=== PATIENT | female | born 1975 | race Caucasian/White ===

== ENCOUNTER 2016-02-18 00:34 | Emergency (ER) | payer OTHER ==
[~2016-02-18] VITALS: Ht 157.5 cm; Wt 66.0 kg
[~2016-02-18 00:34] MED LIST: ACET500C16 PO; BUPR2TAB PO; CARV3.122 PO; FAMO1TAB PO; FUR20 PO; LISI2.5T PO; POTA10TA12 PO; PREN-20 PO
[2016-02-18 00:37] VITALS: BP 111/78; PULSE 88; RESP 16; O2SAT 98
== END 2016-02-18 01:05 | disposition left against medical advice (07) ==
LOC: SED 00:34
DX: Z53.21 Procedure and treatment not carried out due to patient leaving prior to being seen by health care provider (principal)

== ENCOUNTER 2016-06-26 16:40 | Inpatient (IN) | payer OTHER, MEDICAID ==
[2016-06-26] VITALS (8 sets, daily range): BP systolic 80–129; BP diastolic 54–82; PULSE 98–109; RESP 18–24; O2SAT 96–99
[~2016-06-26] VITALS: Ht 157.5 cm; Wt 58.6 kg
--- NOTE | 2016-06-26 16:43 | ED.REPORT ---
HPI-Chest Pain Under 40 Date of Service June 26, 2016 ED Provider: Dr. Alonso Rice MD A 39 year old female with a history of CHF, pulmonary hypertension and a prior history of IV drug abuse presents to the ED via EMS with chest pain that began this morning. Patient was seen at Urgent Care this afternoon and was sent to the ED for further evaluation. Associated symptoms include SOB, new onset fever of 101 F, mild lower extremity swelling and right-sided back pain that began 2 days ago. She denies chills or abdominal pain. She denies history of [place]. Patient has not taken her Adcirca, torsemide or lateris for the past few days and claims that she was unable to fill the prescription. Nursing Notes Stated Complaint: CHEST PAIN Chief Complaint: Chest Pain Nursing Notes Reviewed: Yes Allergies: Coded Allergies: Penicillins (Verified Allergy, Unknown, A CHILD, 06/26/16) Scheduled Acetaminophen (Pain Reliever) 500 Mg Capsule 500 MG PO PRN Ambrisentan (Letairis) 10 Mg Tablet 10 MG PO DAILY Buprenorphine-Expunged Drug, Do Not Renew! (Buprenorphine-Expunged Drug, Do Not Renew!) 2 Mg Tab.subl 4 MG PO DAILY Carvedilol (Carvedilol) 3.125 Mg Tablet 3.125 MG PO BID Famotidine/Calcium Carb/Mag (Tums Dual Action Tablet Chew) 1 Each Tab.chew 1 EACH PO PRN Furosemide (Furosemide) 20 Mg Tab 20 MG PO DAILY Lisinopril (Lisinopril) 2.5 Mg Tablet 5 MG PO DAILY Pnv With Ca,No.71/Iron/Fa-Expunged Drug, Do N (-Expunged Drug, Do Not Renew!) 1 Each Tablet 1 EACH PO DAILY Potassium Chloride ER (Potassium Chloride ER) 10 Meq Tablet 10 MG PO DAILY Tadalafil (Adcirca) 20 Mg Tablet 40 MG PO DAILY Torsemide (Torsemide) 20 Mg Tablet 20 MG PO DAILY General Time Seen by MD: 16:43 Chief Complaint Chest pain Hx Obtained From: Patient Arrived By: Ambulance Sudden in Onset?: No Onset Occurred: Just prior to arrival Symptom Duration: Since onset Location: : Chest left: Chest right Quality: Painful Radiation: : Does not radiate Migration/Movement: Reports: None Severity: Current: Moderate Severity: Maximum: Moderate Associated with: Reports: Fever (101F), Shortness of breath Pertinent Negative: Pt denies other symptoms Recent Healthcare: No recent doctor visit, No recent hospitalization Risk Factors )( CAD Risk Stratification Hypertension Risk factors reviewed TAD Risk Stratification Hypertension Risk factors reviewed )( PE Risk Stratification Risk factors reviewed Past Medical History Past Medical History Notes: social work specialist: Dr. Anupam Winters Past Medical History IV drug abuse Pulmonary hypertension Reports: Congestive heart failure Past Surgical History None reported. Smoking History Never Smoker Social History Drug Use: In recovery, IV drugs Other Social History: Good social support, Local resident Ambulatory Status Independent Review of Systems Constitutional: Reports: Fever (101 F), Denies: Chills Respiratory: Reports: Shortness of breath Cardiovascular: Reports: Chest pain GI: Denies: Abdominal pain Musculoskeletal: Reports: Back pain Complete sys rev & neg: except as marked. Physical Exam Initial Vital Signs Vital Signs (First) Date Time Temp Pulse Resp B/P Pulse Ox O2 Delivery O2 Flow Rate FiO2 06/26/16 16:43 37.3 104 24 95/56 96 Room Air Initial VS: Reviewed Head / Eyes: Atraumatic, Normocephalic, PERRL Skin: Warm, Dry, No cyanosis Neurologic: Alert, Oriented, Nonfocal General/Constitutional: Awake, Alert Distress / Hydration: Positive: Distress moderate Respiratory / Chest: Atraumatic, Breath sounds NL, Breath sounds = bilat, No respiratory distress Cardiovascular: Regular rhythm, Heart sounds NL Heart Rate / Rhythm: Positive: Tachycardia Lower Ext Edema: Positive: Bilateral 1+ Neck: Atraumatic, Supple Neck Vascular: Positive: JVD moderate Abdomen: Atraumatic, Soft, Non-tender Lower Extremity / Pelvis / MS: Atraumatic, Neurologic intact, Vascular intact Upper Extremity / MS: Atraumatic, Neurologic intact, Vascular intact Interpretation & Diagnostics Lab Results Interpretation Result Diagram: 06/26/16 1650 06/26/16 1650 Test 06/26/16 16:50 06/26/16 18:11 White Blood Count 9.1th/mm3 (3.8-10.1) Red Blood Count 4.88mil/mm3 (3.90-5.20) Hemoglobin 14.3g/dL (12.0-15.6) Hematocrit 41.7% (35.0-46.0) Mean Corpuscular Volume 85.5fL (81-100) Mean Corpuscular Hemoglobin 29.3pg (27.0-35.0) Mean Corpuscular Hemoglobin Concent 34.3% (32.0-37.0) Red Cell Distribution Width 14.9% (12.3-15.4) Platelet Count 423bil/L (150-400) Neutrophils (%) (Auto) 54.5% (40-74) Lymphocytes (%) (Auto) 33.2% (14-46) Monocytes (%) (Auto) 10.7% (4-12) Eosinophils (%) (Auto) 1.3% (0-5) Basophils (%) (Auto) 0.2% (0-3) Erythrocyte Sedimentation Rate 17mm/hr (0-32) Sodium Level 135mEq/L (134-144) Potassium Level 3.5mEq/L (3.5-5.2) Chloride Level 98mEq/L (97-108) Carbon Dioxide Level 21mmol/L (18-29) Blood Urea Nitrogen 14mg/dL (6-20) Creatinine 0.83mg/dL (0.57-1.00) Estimat Glomerular Filtration Rate 110mL/min (>59) Glucose Level 95mg/dL (60-99) Calcium Level 8.5mg/dL (8.5-10.1) Magnesium Level 1.7mg/dL (1.6-2.6) Total Bilirubin 0.4mg/dL (0.0-1.2) Aspartate Amino Transf (AST/SGOT) 136U/L (0-50) Alanine Aminotransferase (ALT/SGPT) 114U/L (0-32) Alkaline Phosphatase 95U/L (25-150) Troponin T < 0.010ug/L (0.0-0.011) C-Reactive Protein 0.1mg/dL (0.0-0.5) Pro-B-Type Natriuretic Peptide 1523pg/mL (0-130) Total Protein 8.5g/dL (6.4-8.4) Albumin 3.5g/dL (3.4-5.0) Alcohols < 10mg/dL (0-10) Hold Urine Received (Received) Point of Care Testing: Preg test neg - urine ECG Interpretation ECG Interpretation: Sinus tachycardia Rate [address] changes Right ventricular hypertrophy Time: 16:59 Interpreted by: ED physician Normal ECG Interpretation: No change from prior ECGs Drug Screen / Level Interp Urine pos amphetamines (methamohetamine) X-Ray Chest Interpretation Chest Xray Interpretation: IMPRESSION: No acute process. Dictated by: Michelle Webster M.D. on 06/26/2016 at 17:11 Interpretation / Wet Read by: Interpret - Radiologist Re-Eval/Medical Decision Med Decision/Clinical Course Patient presents with right-sided chest pain for greater than 6 hours. Exam findings do not reveal severe fluid overload, her vital signs are stable. She has low-grade tachycardia which may be due to med noncompliance and suspected methamphetamine abuse based on urinalysis. Troponin is negative, probe BNP is mildly elevated however she has reassuring vital signs. She was given IV Lasix and her symptoms have greatly improved. I suspect this is likely a mild exacerbation of pulmonary hypertension due to noncompliance. I do not suspect that she is decompensated to the point where she requires hospitalization at this time. It seems reasonable to have her resume her regularly scheduled medicines, as she has very clearly said she has been noncompliant over the weekend, refrain from alcohol and drug use, and follow-up with her primary care doctor and space physicist. Of note, she did have a fever documented at urgent care at 38.3. No identifiable cause for fever is found, her white blood cell count is normal, normal sedimentation rate, normal C-reactive protein, normal chest x-ray, no evidence of UTI on urinalysis. Endocarditis seems unlikely. Strict return and follow-up precautions are given. Re-Evaluation/Progress #1: Time of Eval: 17:01 Re-Evaluation/Progress Note: Pt is rechecked. Further history is obtained. Re-Evaluation/Progress #2: Time of Eval: 18:53 Patient Status: Condition improved Re-Evaluation/Progress Note: Symptoms have improved. She denies any recent IV drug use or meth use. All questions about the prescriptions are addressed. She understands and agrees with the intended treatment plan. Consultation : Referral / Consult Name: Mahendra Thornton MD Consulted With: Associate Professor Of Medicine Call Returned at: 17:26 Learning Support Resource Room Teacher: Agrees with eval, Agrees with plan Note: Recommends give pt 10mg of torsemide but hold off administering 10 mg of lateris or 20mg of adircica. Counseled Regarding: Diagnosis, Lab results, Need for follow-up, When/why to return to ED Discharge & Departure Primary Impression: Chest pain Chest pain type: unspecified Qualified Code: R07.9 - Chest pain, unspecified Disposition: Home Discharge Condition All VS Reviewed: Yes Condition: Stable Patient Instructions: Chest Pain (ED) Additional Instructions: Thank you for trusting us with your care this afternoon. Your emergency department evaluation today including lab work, EKG and chest X- ray are reassuring that there is no dangerous cause for concern at this time and your labs did not reveal any signs of infection. Please continue to take your medication as directed. Your medicines have been refilled for 2 weeks. Call your space physicist tomorrow to schedule a close follow up appointment. Avoid alcohol and drug use. Please return to the emergency department if you begin to experience any new or worsening symptoms. Referrals: NOPCP (PCP) [facility] Scribe Attestation Portions of this note were transcribed by Alka Haro. I, Dr. Rice personally performed the history, physical exam and medical decision-making; I reviewed and confirmed the accuracy of the information in the transcribed note. Signed by: French Christina, 06/26/16 1901. Alonso Rice DO June 26, 2016 16:43 ALKA HARO June 26, 2016 16:51
[2016-06-26 17:00] LABS: BASOPHILS % (AUTO) 0.2 % (0-3); EOSINOPHILS % (AUTO) 1.3 % (0-5); MONOCYTES % (AUTO) 10.7 % (4-12); Mean Corpuscular Hemoglobin 29.3 pg (27.0-35.0); Mean Corpuscular Volume 85.5 fL (81-100); NEUTROPHILS % (AUTO) 54.5 % (40-74); Platelet Count 423 bil/L (150-400)
--- NOTE | 2016-06-26 17:13 | DRSVH ---
PROCEDURE: X-RAY CHEST ONE VIEW, PORTABLE ([id number]) INDICATIONS: CHEST PAIN TECHNIQUE: One view of the chest was acquired. COMPARISON: [facility], CR, XR CHEST 1VW (PORTABLE), 10/20/2015, 22:21. [facility], CR, XR CHEST 1VW (PORTABLE), 10/20/2015, 19:00. FINDINGS: Surgical changes and devices: None. Lungs and pleura: No pleural effusions or pneumothorax. Lungs are clear. Mediastinum: Mediastinal contours appear normal. Heart size is enlarged. Bones and chest wall: No suspicious bony lesions. Overlying soft tissues appear unremarkable. IMPRESSION: No acute process. Dictated by: Michelle Webster M.D. on 06/26/2016 at 17:11 Approved by: Michelle Webster M.D. on 06/26/2016 at 17:11
[2016-06-26 17:25] LABS: TROPONIN T < 0.010 ug/L (0.0-0.011)
[2016-06-26] MEDS ORDERED: Furosemide 10 mg/mL 2 mL Inj IVPUSH ONE (17:25)
[2016-06-26 17:35] LABS: Magnesium 1.7 mg/dL (1.6-2.6)
[2016-06-26] MEDS ORDERED: TADA20TA31 PO (18:59)
[2016-06-26] MEDS ORDERED: TORS20TA3 PO (18:59)
[2016-06-26] MEDS ORDERED: AMBR10TA3 PO (18:59)
--- NOTE | 2016-06-26 21:59 | DRSVH ---
PROCEDURE: CT ANG CHEST/ABD W/WO CONTRAST ([id number]) INDICATIONS: CHEST PAIN TECHNIQUE: Precontrast 5 mm thick sections acquired from the lung apices to the iliac crests. After the adminis tration of intravenous contrast, 3 mm thick sections again acquired from the lung apices to the iliac crests. 3-dimensional maximum intensity projection (MIP) oblique sagittal and coronal reformats wer e then acquired, and/or 3-dimensional volume rendering reformats. For radiation dose reduction, the following was used: automated exposure control. COMPARISON: [facility], CT, CT ANGIO CHEST PE, 10/20/2015, 23:32. FINDINGS: Image quality: Excellent. AORTA: No evidence of dissection, stenosis, nor aneurysm. CHEST: Lungs and pleura: No acute airspace opacities. No pleural effusions or pneumothorax. Central and p eripheral airways are patent and normal in caliber. Mediastinum: Heart size is enlarged. There is a small pericardial effusion. No mediastinal or hilar adenopathy by size criteria. Central pulmonary arteries are normal in size. Esophagus is normal in caliber. A small hiatal hernia is present. Bones and chest wall: No axillary adenopathy by size criteria. Thyroid gland is within normal limit s. No suspicious bony lesions. No vertebral body compression fractures. ABDOMEN: Vasculature: Celiac trunk and mesenteric arteries are patent. Renal arteries are also patent. Solid organs: Liver and spleen are normal in size. Gallbladder is within normal limits. Biliary sy stem is non dilated. Pancreas enhances normally. No adrenal nodules. Both kidneys are normal in si ze and enhancement, without hydronephrosis. Peritoneum and bowel: No free fluid or air. Bowel loops are normal in caliber and wall thickness. Nodes and vessels: No retroperitoneal or mesenteric adenopathy by size criteria. Inferior vena cava is normal in morphology. Bones: No suspicious bony lesions. No vertebral body compression fractures. Miscellaneous: No ventral hernias. IMPRESSION: 1. No acute process. 2. Small pericardial effusion. 3. Cardiomegaly. 4. No evidence of aortic dissection, nor aneurysm. Dictated by: Michelle Webster M.D. on 06/26/2016 at 21:55 Approved by: Michelle Webster M.D. on 06/26/2016 at 21:58
[2016-06-26] MEDS ORDERED: Alum-Mag Hydrox-Simeth 30 mL Suspension PO PRN (22:35)
--- NOTE | 2016-06-26 23:28 | PCM.HPMED ---
Subjective Date of Service June 26, 2016 Primary Provider: Admitting Physician: Primary Care Physician: April Attending Physician: Admit Status: From the Emergency Department, Full Admit, [facility] Telemetry Chief Complaint: Chest pain History of Present Illness: No [place] is a 39 year old female with Core Pulmonale with Right sided heart failure, pulmonary hypertension and a prior history of IV drug abuse presents to [facility] emergency department via EMS with chest pain that began this morning. Chest pain is located mid sternal, pressure, 4/10 intensity and non radiating. Associated symptoms include Shortness of breathe, generalized weakness, some lightheadness, new onset fever of 101 F. She denies chills or abdominal pain. No coughing and no fever. She denies any illicit drug use. Patient was seen at Urgent Care this afternoon and was sent to the ED for further evaluation. Patient has not taken her Tadalafil, torsemide and Ambrisentan for the past few days and claims that she was unable to fill the prescription. Patient has a history of prior ICU admission October 2015. Discharge diagnoses included pulmonary hypertension and pericardial effusion. She had echo that demonstrated severe pulmonary hypertension mild right ventricular enlargement and moderate systolic dysfunction. She has seen Dr Winters (Pulmonology) at the [facility] and it was identified patient was non compliant with her medications and was suppose to follow up at Pulmonology Hypertension clinic. Case discussed with Dr Betts, failed road test with persistent dyspnea on exertion and was hypotension on arrival. He spoke to Dr Dial from Cardiology who recommended gentle diuresis tonight and repeat an Echo tomorrow. Review of Systems: Pertinent positives as noted in HPI. All other systems were reviewed and are negative Allergies Coded Allergies: Penicillins (Verified Allergy, Unknown, A CHILD, 06/26/16) Home Medications From [facility], not yet confirmed No E[place] [id number] 1975 06/26/2016 03:45 PM 1/ Adcirca 20 mg tablet take 2 tablet by oral route every day clindamycin 300 mg capsule take 1 capsule by oral route every 6 hours Letairis 10 mg tablet take 1 tablet by oral route every day torsemide 10 mg tablet take 2 Tablet by oral route every day PMH Hepatitic C Heroine and Methamphetamine Abuse Connective tissue disease possible Systemic Lupus (2013): stopped taking Hydrochloroquine due to head ache Pulmonary hypertension, [facility] evaluation and was treated with Tadalafil, Ambrisentan and Torsemide daily Right heart failure due to pulmonary hypertension Surgical History None reported Family History No heart or lung disease in the family Social History Hx Alcohol Use: No Hx Substance Use: Yes (DENIES) Hx Tobacco Use: No Smoking Status: Never Smoker Living Arrangement: with Family Exam Vital Signs Vital Sign - Last Date Time Temp Pulse Resp B/P Pulse Ox O2 Delivery O2 Flow Rate FiO2 06/26/16 21:05 37.3 98 20 90/58 99 Room Air Exam General: Alert, Oriented X3, Cooperative, No acute Distress Eyes: PERRLA, Scleral Anicteric Mouth: Mouth Normal, Mucous Membranes Moist/[place] Neck: Supple, no Thyromegaly, trachea central. Chest & Lungs: Clear to auscultation & percussion, No adventitious breath sounds, no crackles, no wheeze Cardiovascular: Normal S1, Normal S2, No Murmurs/Rubs/Gallops, Regular Rate/ Rhythm, S3 noted (No JVD, no peripheral edema) Pulses: Radial (present and equal), Dorsalis Pedi (present and equal) Abdomen: Soft, Non-tender, Non-distended, Normoactive bowel tones. Musculoskeletal: Unremarkable. Normal range of motion, no swollen or erythematous joints Extremities: No edema, no cyanosis, no clubbing. Skin: No rashes. Warm and dry, no erythematous areas Neurological: Grossly neurologically intact, Normal Speech, Sensation Intact Lymphatic: Lymph nodes Cervical and Axillary not palpable Lab and Diagnostics Labs Laboratory Tests Test 06/26/16 16:50 06/26/16 18:11 White Blood Count 9.1th/mm3 (3.8-10.1) Red Blood Count 4.88mil/mm3 (3.90-5.20) Hemoglobin 14.3g/dL (12.0-15.6) Hematocrit 41.7% (35.0-46.0) Mean Corpuscular Volume 85.5fL (81-100) Mean Corpuscular Hemoglobin 29.3pg (27.0-35.0) Mean Corpuscular Hemoglobin Concent 34.3% (32.0-37.0) Red Cell Distribution Width 14.9% (12.3-15.4) Platelet Count 423bil/L (150-400) Neutrophils (%) (Auto) 54.5% (40-74) Lymphocytes (%) (Auto) 33.2% (14-46) Monocytes (%) (Auto) 10.7% (4-12) Eosinophils (%) (Auto) 1.3% (0-5) Basophils (%) (Auto) 0.2% (0-3) Erythrocyte Sedimentation Rate 17mm/hr (0-32) Sodium Level 135mEq/L (134-144) Potassium Level 3.5mEq/L (3.5-5.2) Chloride Level 98mEq/L (97-108) Carbon Dioxide Level 21mmol/L (18-29) Blood Urea Nitrogen 14mg/dL (6-20) Creatinine 0.83mg/dL (0.57-1.00) Estimat Glomerular Filtration Rate 110mL/min (>59) Glucose Level 95mg/dL (60-99) Calcium Level 8.5mg/dL (8.5-10.1) Magnesium Level 1.7mg/dL (1.6-2.6) Total Bilirubin 0.4mg/dL (0.0-1.2) Aspartate Amino Transf (AST/SGOT) 136U/L (0-50) Alanine Aminotransferase (ALT/SGPT) 114U/L (0-32) Alkaline Phosphatase 95U/L (25-150) Troponin T < 0.010ug/L (0.0-0.011) C-Reactive Protein 0.1mg/dL (0.0-0.5) Pro-B-Type Natriuretic Peptide 1523pg/mL (0-130) Total Protein 8.5g/dL (6.4-8.4) Albumin 3.5g/dL (3.4-5.0) Alcohols < 10mg/dL (0-10) Hold Urine Received (Received) Microbiology 06/26/16 Blood Culture, Received Pending Result Diagram: 06/26/16 1650 06/26/16 1650 X-Rays, CTs and MRIs X-RAY CHEST ONE VIEW, PORTABLE 06/26 IMPRESSION: No acute process. Dictated by: Michelle Webster M.D. on 06/26/2016 at 17:11 Approved by: Michelle Webster M.D. on 06/26/2016 at 17:11 -- CT ANG CHEST/ABD W/WO CONTRAST 06/26 IMPRESSION: 1. No acute process. 2. Small pericardial effusion. 3. Cardiomegaly. 4. No evidence of aortic dissection, nor aneurysm. Dictated by: Michelle Webster M.D. on 06/26/2016 at 21:55 Approved by: Michelle Webster M.D. on 06/26/2016 at 21:58 Assessment & Plan No [place] is a 39 year old female with Core Pulmonale with Right sided heart failure, pulmonary hypertension and a prior history of IV drug abuse presents to [facility] emergency department via EMS with chest pain 1. Acute on Chronic Right sided Heart Failure and Pulmonary Hypertension. Present on admission Likely due to non compliance with medications. Consider cardiac ischemia as as cause. No Pulmonary embolism or Aortic dissection on CT scan - diuretics continued Lasix 40 mg IV bid - monitor weight and fluid status daily - complete echo tomorrow - will resume Tadalafil and Ambrisentan to treat Pulmonary hypertension - Cardiology consulted - consider Pulmonology consultation, Dr Winters is familiar with the patient 2 Hypotension. Present on admission Patient reporting she has chronically low BP. Consider infection but no source is obvious at this time - monitor closely - No fluids given due to acute congestive heart failure - consider workup for Adrenal insufficiency 3 Elevated Transaminitis due to Shock liver. Present on admission Hypotension noted with history of Chronic Hepatitis C 4 Systemic Lupus Erythematosus Chronic and presumed active due to not current active immuno suppressive medications - will need to follow up locally with Dr Suarez or Rheumatology clinic at 5 History of Heroine/Methamphetamine Abuse - Urine drug screen - Acetaminophen as needed for mild pain/fever/headache - Bowel regimen as needed - Antiemetic as needed Patient admitted under inpatient status with expected length of stay > 2 midnights for severity of present symptoms, complexities of treatment plan and risk for adverse event . VTE Prophylaxis: Sub-Q Heparin (Unfractionated) Resuscitation Status: CPR: Attempt Resuscitation Koffi Gonzalez MD June 26, 2016 22:39
[2016-06-27] VITALS (12 sets, daily range): BP systolic 78–104; BP diastolic 54–70; PULSE 97–117; RESP 12–26; O2SAT 84–100
[2016-06-27] MEDS: Sodium Chloride LOK Flush 10 mL Syringe IVFLUSH SCH ×3 (00:08→17:12)
[2016-06-27] MEDS: Heparin 5,000 Unit/mL Inj SUBQ SCH ×3 (00:08→17:12)
--- NOTE | 2016-06-27 00:25 | NUR ---
Admission Note Pt admitted to [facility] from ER on stretcherDr. Gonzalez at bedside, pt appears drowsy (pt had Ativan IV at ER) with eyes closed, response to sternal rub or pain stimuli with "Ow",grimace, and spontaneously move extremities, but does not talk or answer any questions, therefore, unable to conduct admission questions at this time, will try later when pt wake up. BP 92/61 (baseline 80s,90s per MARINE STEWARD report), HR108, RR20, SPO2 95% on RA, T 37.2. No acute distress noted. Lung sounds clear, no crackles or wheezes noted. Tele: ST 107 per ekg monitor, S1 S2 strong,regular,no murmur. S3 present, MD aware, pt had Lasix at ER. Abdomen soft, non tender, BT active at all quadrants, trace edema at LEs. Call light within reach, bed alarm on for safety. Dr. Gonzalez said Ok to give Tylenol despite elevated liver enzyme if pt c/o pain.
--- NOTE | 2016-06-27 02:00 | NUR ---
Unable to compete and/or verify admission assessment/Home meds/Advance Directive/Allergy Pt appears sedated (pt had Ativan IV at ER) with eyes closed, response to sternal rub or pain stimuli with "Ow",grimace, and spontaneously move extremities, but does not talk or answer any questions. Unable to compete and/or verify admission assessment/Home meds/Advance Directive/Allergy, limited answers based on hx recall and H&P. Unable to verified allergy with [employer] Beth Pond who is out of work. Will continue working on it when pt wake up.
--- NOTE | 2016-06-27 04:35 | NUR ---
Hypertension/Mental Status Baseline BP 80S-90S per [employer] report. Dr. Gonzalez keep informed at 0420 about current BP88/58 HR 103, cold hands. No order given. Pt less drowsy, wake up by voice, but still unable to communicate. Addendum: 06/27/16 at 9624 by JETHRO AVALOS RN Title should be "Hypotension/Mental Status", rather than "Hypertension/Mental Status"
[2016-06-27 05:41] LABS: APPEARANCE,URINE CLEAR (CLEAR,HAZY); COLOR,URINE STRAW (YELLOW); OCCULT BLOOD,URINE NEGATIVE (NEGATIVE); UROBILINOGEN,URINE NORMAL (NORMAL)
[2016-06-27] MEDS: Furosemide 10 mg/mL 4 mL Inj IVPUSH SCH ×2 (08:30→20:24)
[2016-06-27 08:57] LABS: Creatine Kinase 179 U/L (21-215); TROPONIN T < 0.010 ug/L (0.0-0.011)
--- NOTE | 2016-06-27 10:46 | PCM.CHPCAR ---
Consult Subjective Date of service June 27, 2016 Date of admit June 26, 2016 at 23:12 Provider Requesting Consult Requesting Provider: Koffi Gonzalez MD Primary Care Physician Primary Care Physician: April Chief Complaint Chest pain and pressure History of Present Illness 39yoF hx pulmonary 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 she also reported shortness of breath, generalized weakness, lightheadedness, and fever. She denied chills or abdominal pain. No coughing and no fever. She denies any illicit drug use over the past 6 months, though a urine tox screen was positive for amphetamines on admission. She is currently on tadalafil and ambrisentan, as well as torsemide and hydroxychloroquine. She has been noncompliant with her medications and takes the tadalafil and ambrisentan only 50% of the time and had stopped taking hydroxychloroquine for months before starting it again recently on Dr. Winters's advice. She had a recent ICU admission in October 2015 included pulmonary hypertension and pericardial effusion. Echocardiogram on 11/01/15 showed normal LVEF, moderate RV dilation with mildly reduced function, pulmonary HTN with PA pressures of 47mmHg, flattened interventricular septum, and a small pericardial effusion. Today, further history is limited as the patient is somnolent and does not stay awake longer to adequately answer questions. She did complain of chest pain and shortness of breath today when lying on her left side for an echocardiogram. PROBLEM LIST #Pulmonary hypertension with right heart failure #Chest pain #Shortness of breath #Methamphetamine abuse #Mixed connective tissue disease/systemic lupus #Hepatitis C Review of Systems Review of Systems Review of systems limited due to patient mental status. PMH Past Medical History Hepatitic C Heroin and Methamphetamine Abuse Connective tissue disease possible Systemic Lupus (2013): stopped taking Hydrochloroquine due to head ache Pulmonary hypertension, [facility] evaluation and was treated with Tadalafil, Ambrisentan and Torsemide daily Right heart failure due to pulmonary hypertension No Active Prescriptions or Reported Meds Current Inpatient Medications Current Medications Morphine Sulfate 4 mg Q15MIN PRN IVPUSH; Start 06/26/16 at 20:20; Stop at 23:42; Status DC Sodium Chloride 10 ml JEFF IVFLUSH Last administered on 06/27/16 00:08; Admin Dose 10 ML; Start 06/27/16 at 00:30 Furosemide 40 mg BID IVPUSH; Start 06/27/16 at 08:30 Al Hydrox/Mg Hydrox/Simethicone 30 ml Q6H PRN PO; Start 06/26/16 at 22:35 Ondansetron HCl 4 mg Q4H PRN IVPUSH; Start 06/26/16 at 22:35 Senna 2 tablet BID PRN PO; Start 06/26/16 at 22:35 Polyethylene Glycol 17 gm DAILY PRN PO; Start 06/26/16 at 22:35 Acetaminophen 650 mg Q6H PRN PO; Start 06/26/16 at 22:35 Nitroglycerin 0.4 mg Q5MIN PRN SL; Start 06/26/16 at 22:35 Heparin Sodium (Porcine) 5,000 unit Q8 SUBQ Last administered on 06/27/16 00:08 ; Admin Dose 5,000 UNIT; Start 06/27/16 at 00:30 Allergies: Coded Allergies: Penicillins (Verified Allergy, Unknown, A CHILD, 06/26/16) Social History Hx Alcohol Use: NoHx Substance Use: Yes (Heroine and Methamphetamine)Hx Tobacco Use: No Smoking Status: Never Smoker Living Arrangement: with Family Exam Vital Signs Vital Sign - Last Date Time Temp Pulse Resp B/P Pulse Ox O2 Delivery O2 Flow Rate FiO2 06/27/16 10:02 37.6 113 26 93/65 06/27/16 05:24 100 Room Air Intake and Output 06/26/16 06/26/16 06/27/16 Cumulative From/Thru 15:00 23:00 07:00 06/26/16 16:43 - 06/27/16 06:49 Intake Total 0 ml 0 ml Output Total 650 ml 450 ml 1100 ml Balance -650 ml -450 ml -1100 ml Intake Oral 0 ml 0 ml Output Urine Total 650 ml 450 ml 1100 ml Objective General appearance: Appears somnolent and difficult to arouse. HEET: Normocephalic, atraumatic, no scleral icterus, mucous membranes moist Neck: Supple, no JVD, no carotid bruit Cardiovascular: RRR, normal S1 and normal S2, no murmurs/ rubs/gallops, PMI nondisplaced, no peripheral edema Respiratory: Good aeration, CTAB Abdomen: Soft, nontender, nondistended, + bowel sounds Neuro: Somnolent, difficult to arouse. Speech normal. Psych: Appropriate affect Skin: No rashes on face, neck, and lower extremities Lab and Diagnostics Result Diagram: 06/26/16 1650 06/27/16 0735 Assessment & Plan Assessment 39yoF hx pulmonary 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 #Right heart failure secondary to severe pulmonary arterial hypertension: Pulm HTN secondary to mixed connective tissue disease and meth use. RV failure has worsened due to ongoing meth use and medication non-compliance. CXR was normal. CT chest/abdomen showed cardiomegaly and a small pericardial effusion. We reviewed her echocardiogram today, which showed normal LV function, but severe right ventricular dysfunction with severely increased pulmonary arterial pressures. A pericardial effusion was noted, worse than her previous echo, which is a poor prognostic indicator in cor pulmonale. Her IVC size was normal, with no indication of any significant volume overload. Her physical exam was not suspicious for volume overload as well. Given her presentation and recent echo, her prognosis is likely poor. Recommend discussion with palliative care and symptomatic management by restarting her home tadalafil and ambrisentan, as well as continuing current Lasix dose. - Recommend consulting Palliative Care - Restart home tadalafil and ambrisentan - Continue Lasix 40 mg IV BID. Dose may need to be decreased if patient gets RALPH due to overdiuresis. #Shortness of breath: Likely secondary to right heart failure. Recommend treatment of pulmonary hypertension. #Methamphetamine abuse: Likely exacerbated her right heart failure with recent use. She is likely somnolent from amphetamine withdrawal. #Hepatitis C: Recommend regular monitoring of LFTs while on ambrisentan. Cardiology will sign off at this time. VTE Prophylaxis: Sub-Q Heparin (Unfractionated) VTE Mechanical Devices: Intermittant Pneumatic CD Resuscitation Status: CPR: Attempt Resuscitation Attending Statement I saw, examined, and evaluated the patient with Dr. Dorian Pierson on 2016 and agree with the note as above along with my edits. Dorian Pierson 23, 2017 10:46 Richard Garcia MD June 27, 2016 11:36
[2016-06-27] MEDS: Hydroxychloroqine 200 mg Tablet PO SCH ×2 (11:29→12:51)
--- NOTE | 2016-06-27 11:32 | DRSVH ---
[facility] [address] [place] [address] Echocardiogram Report Name: PRASANNA SLOAN CStudy Date: 06/27/2016 Height: 62 in Hospital Exam Location: [facility] Weight: 124 lb Gender: Female BSA: 1.6 m2 : 1975 Age: 40 yrs BP: 78/54 mmHg Reason For Study: SOB Ordering Physician: Performed By: [facility] Interpretation Summary 1) Small left ventricular cavity with normal thickness and normal systolic function (EF 60-65%). 2) Severely dilated right ventricle with moderately to severely reduced function. 3) Flattened interventricular septum, suggestive of right ventricular pressure overload. 4) Moderate tricuspid regurgitation present. 5) Severe pulmonary hypertension present, estimated systolic pulmonary pressures of 90mmHG. 6) Moderate pericardial effusion present, with no echo evidence of tamponade physiology. 7) Compared to the Echo done 11/04/2015, cor pulmonale and pulmonary hypertension have both worsened and worsening of pericardial effusion is a also a poor prognostic sign. Procedure: A two-dimensional transthoracic echocardiogram with color flow and Doppler was performed. The study quality was technically adequate. Comparison is made with the echocardiogram of 11/04/2015. The patient was in sinus tachycardia with heart rates between 97-113 bpm during the exam. Left Ventricle: The left ventricular cavity is small. Left ventricular wall thickness is borderline increased. The ejection fraction is estimated to be 60-65%. Flattened septum is consistent with RV pressure/volume overload. Assessment of diastolic parameters indicates a relaxation abnormality of the left ventricle, consistent with normal filling pressures. Right Ventricle: The right ventricle is severely dilated. Right ventricular size has increased since the prior echo exam. There is no mass or thrombus in the right ventricle. Right ventricular systolic function is moderate to severely reduced. Atria: The left atrial size is normal. The right atrium is severely dilated. Mitral Valve: There is a flat closure plane of the the mitral valve leaflets. There is no mitral regurgitation noted. Aortic Valve: The aortic valve is normal in structure and function. There is no aortic valve stenosis. No aortic regurgitation is present. Tricuspid Valve: The tricuspid valve leaflets are thin and pliable. The tricuspid annulus is dilated. There is moderate tricuspid regurgitation. The right ventricular systolic pressure is estimated at 90 mmHg assuming a right atrial pressure of 8 mm Hg. There is severe pulmonary hypertension. Compared to the prior echo exam, there has been an increase in the severity of pulmonary hypertension. Pulmonic Valve: The pulmonic valve leaflets are thin and pliable; valve motion is normal. There is mild pulmonic regurgitation. Great Vessels: The aortic root is normal size. The ascending aorta could not be visualized. The IVC is of normal diameter and collapses less than 50% with a sniff. This suggests a right atrial pressure of 8 mm Hg. Pericardium/ Pleura There are no echocardiographic or Doppler indications for cardiac tamponade. There is a moderate pericardial effusion noted. MMode/2D Measurements & Calculations LVIDd: 3.2 cm RA long axis LVOT diam LVIDs: 1.7 cm LA A2 area: 15.0 cm FS: 46.0 % LA A4 area: 9.9 cm RA area AoV Opening EPSS: 0.10 cm LA length (vol): 5.6 cm IVSd: 1.0 cm LA vol: 22.6 ml : 25.4 cm Ao root diam LVPWd: 1.2 cm LA vol index RA vol: 96.0 ml RA Aortic Jxn : 61.5 mm2 : 2.2 cm IVC diam: 1.8 cm LV downing. diameter/BSA LV sys. diameter/BSA RVD1 (basal) RVD2 (mid) (cm/m^2): 2.0 (cm/m^2): 1.1 : 4.0 cm TAPSE: 1.4 cm Doppler Measurements & Calculations Ao V2 max: 87.6 cm/sec MV E max elijah MV E/A: 0.62 TR max elijah Ao max P.1 mmHg : 49.4 cm/sec Med Peak E' Elijah : 453.9 cm/sec Ao mean P.9 mmHg MV A max elijah TR max PG LVOT Max Elijah : 79.8 cm/sec E/E' med: 8.9 : 82.4 mmHg : 82.2 cm/sec Lat Peak E' Elijah PA V2 max : 66.4 cm/sec YASMEEN(I,D): 2.4 cm E/E' lat: 9.0 PA mean PG sev ratio: 0.89 E/e' average: 8.9 : 0.96 mmHg PA Accel Time : 0.07 sec MV dec time: 0.18 sec Ao V2 mean LV V1 max PG PA V2 mean : 65.5 cm/sec : 46.6 cm/sec Ao V2 VTI LV V1 VTI: 10.2 cm YASMEEN(V,D): 2.6 cm2 YASMEEN indexed to BSA (cm^2/m^2): 1.6 Reading Physician:11:32 AM
[2016-06-27] MEDS: Ondansetron 2 mg/mL 2 mL Inj IVPUSH PRN (13:00)
[2016-06-27 15:39] LABS: TROPONIN T 0.027 ug/L (0.0-0.011)
[2016-06-27 15:50] LABS: Creatine Kinase 71 U/L (21-215)
--- NOTE | 2016-06-27 16:02 | NUR ---
SW - Initial Assessment Attempted SW met with pt at bedside to attempt initial assessment. Pt could not be roused. SW will reattempt assessment tomorrow. TANESHA Gabriel
--- NOTE | 2016-06-27 16:27 | NUR ---
Activity/Mentation/Orthostatic BP Patient very somnolent this shift. "I am just so tired-I think it is because of the pain (chest)". Patient moaning with movement. Patient reporting 9-10/10 pain which was resolved with Tylenol. Patient unable to stay awake to eat breakfast and ate only about 10% of lunch due to inability to stay awake. 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 Patient told admit nurse at start of shift that she didn't take any meds at home. Later, patient reported that she takes Torsemide and Tadalafil. Patient positive for orthostatic blood pressure and AM Lasix was held due to blood pressure of 93/65 per hospitalist.
--- NOTE | 2016-06-27 21:14 | NUR ---
Lasix P: Pt's Lasix was held this am due to low BP. Tonight at 1930 her BP was 104/70. Pt O2 levels were in the 80's so RT put her on 2 liters I: Since pt has R sided Heart failure,and BP was up a little, primary RN decided to give her pm Lasix E: 30 minutes after giving Lasix, her BP was 91/63, will continue to monitor S: Bed locked and in low position, side rails up x2, call light w/in reach, non skid socks on, pt is aware to let us know when she needs to get up to use the bedside commode.
--- NOTE | 2016-06-27 21:21 | NUR ---
bp/meds: pt's bp was 104/70, 40mg iv lasix given, was held this am, pt's bp now 91/63. pt. still very sleepy, denies chest pain, states she has headache and right sided shoulder pain.
[2016-06-27 23:17] LABS: Creatine Kinase 113 U/L (21-215)
--- NOTE | 2016-06-27 23:35 | PCM.PNMED ---
Subjective Date of Service June 27, 2016 Subjective Patient is hypersomnolent. However, she is arousable and appears to be arousable when she wants to be. She has no specific complaints. Exam Vital Signs Vital Sign - Last Date Time Temp Pulse Resp B/P Pulse Ox O2 Delivery O2 Flow Rate FiO2 06/27/16 21:06 91/63 06/27/16 20:00 113 06/27/16 19:52 84 Room Air 06/27/16 19:29 36.7 24 Intake and Output 06/26/16 06/26/16 06/27/16 Cumulative From/Thru 15:00 23:00 07:00 06/26/16 16:43 - 06/27/16 06:49 Intake Total 0 ml 0 ml Output Total 650 ml 450 ml 1100 ml Balance -650 ml -450 ml -1100 ml Intake Oral 0 ml 0 ml Output Urine Total 650 ml 450 ml 1100 ml Exam General: Patient is very somnolent. She is easily arousable, then she goes right back to sleep. HEENT: Head is atraumatic and normocephalic. Eyes: Pupils are equally round and reactive to light and accommodation. Extraocular muscles are intact. Sclera are white, anicteric. Subconjunctival mucosa is pink. Ears and nose are unremarkable. Oropharynx: There is no mucosal lesions, there is no thrush, there is no pharyngitis. Neck: Is supple, there are no nodes, or masses or tenderness. Chest: Is clear to auscultation and percussion. There are no rales, rhonchi, wheezes or rubs. Heart: Rate is slightly tachycardic, rhythm is regular. There is no murmur, rub or gallop. Abdomen: Good bowel sounds are present. Abdomen is soft, nontender, no organomegaly or masses were appreciated. Extremities: Are symmetrical and well perfused. There is no edema, there is no cellulitis, no rash. Neurologic: There are no focal neurological deficits. Cranial nerves II through XII are intact. There are no sensory or motor deficits. Psychiatric: Patients mood is calm and shows no sign of agitation. Genital: Deferred Rectal: Deferred Lab and Diagnostics Result Diagram: 06/26/16 1650 06/27/16 0735 Microbiology MRSA nasal screen is negative. Blood cultures are negative to date. X-Rays, CTs and MRIs X-RAY CHEST ONE VIEW, PORTABLE 06/26 IMPRESSION: No acute process. Dictated by: Michelle Webster M.D. on 06/26/2016 at 17:11 Approved by: Michelle Webster M.D. on 06/26/2016 at 17:11 -- CT ANG CHEST/ABD W/WO CONTRAST 06/26 IMPRESSION: 1. No acute process. 2. Small pericardial effusion. 3. Cardiomegaly. 4. No evidence of aortic dissection, nor aneurysm. Dictated by: Michelle Webster M.D. on 06/26/2016 at 21:55 Approved by: Michelle Webster M.D. on 06/26/2016 at 21:58 Cardiac Echo Impressions Echocardiogram Report Name: PRASANNA SLOAN CStudy Date: 0 06/27/2016 Height: 62 in Hospital Exam Location: [facility] Weight: 124 lb Gender: Female BSA: 1.6 m2 : 1975 Age: 40 yrs BP: 78/54 mmHg Reason For Study: SOB Ordering Physician: Performed By: [facility] Interpretation Summary 1) Small left ventricular cavity with normal thickness and normal systolic function (EF 60-65%). 2) Severely dilated right ventricle with moderately to severely reduced function. 3) Flattened interventricular septum, suggestive of right ventricular pressure overload. 4) Moderate tricuspid regurgitation present. 5) Severe pulmonary hypertension present, estimated systolic pulmonary pressures of 90mmHG. 6) Moderate pericardial effusion present, with no echo evidence of tamponade physiology. 7) Compared to the Echo done 11/04/2015, cor pulmonale and pulmonary hypertension have both worsened and worsening of pericardial effusion is a also a poor prognostic sign. Assessment & Plan Prasanna Sloan is a 39 year old female with Core Pulmonale with Right sided heart failure, pulmonary hypertension and a prior history of IV drug abuse presents to [facility] emergency department via EMS with chest pain 1. Acute on Chronic Right sided Heart Failure and Pulmonary Hypertension. Present on admission Likely due to non compliance with medications. Consider cardiac ischemia as as cause. No Pulmonary embolism or Aortic dissection on CT scan - diuretics continued Lasix 40 mg IV bid - monitor weight and fluid status daily - complete echo shows worsening of patient's pulmonary hypertension and now has a pericardial effusion which is a poor prognostic sign according to Dr. Arreola cardiology. - will resume Tadalafil and Ambrisentan to treat Pulmonary hypertension - Cardiology consulted and appreciate Dr. Arreola's time and expertise. - consider Pulmonology consultation, Dr Winters is familiar with the patient 2 Hypotension. Present on admission Patient reporting she has chronically low BP. Consider infection but no source is obvious at this time - monitor closely - No fluids given due to acute congestive heart failure - consider workup for Adrenal insufficiency 3 Elevated Transaminitis due to Shock liver. Present on admission Hypotension noted with history of Chronic Hepatitis C 4 Systemic Lupus Erythematosus Chronic and presumed active due to not current active immuno suppressive medications - will need to follow up locally with Dr Suarez or Rheumatology clinic at 5 History of Heroine/Methamphetamine Abuse - Urine drug screen - Acetaminophen as needed for mild pain/fever/headache - Bowel regimen as needed - Antiemetic as needed Disposition: Patient likely to be here another 24-48 hours for further evaluation and treatment of the above. . Pain Evaluation: Adequate Pain Control GI Prophylaxis: Not indicated VTE Prophylaxis: Sub-Q Heparin (Unfractionated) VTE Mechanical Devices: Intermittant Pneumatic CD Resuscitation Status: CPR: Attempt Resuscitation Robert Banks MD June 27, 2016 23:35
[2016-06-28] VITALS (8 sets, daily range): BP systolic 86–107; BP diastolic 59–72; PULSE 95–110; RESP 18–20; O2SAT 93–99
[2016-06-28] MEDS: Heparin 5,000 Unit/mL Inj SUBQ SCH ×3 (00:42→15:54)
[2016-06-28] MEDS: Sodium Chloride LOK Flush 10 mL Syringe IVFLUSH SCH ×3 (00:42→15:54)
[2016-06-28] MEDS: Hydroxychloroqine 200 mg Tablet PO SCH (08:30)
[2016-06-28] MEDS: Furosemide 10 mg/mL 4 mL Inj IVPUSH SCH ×2 (09:32→20:30)
--- NOTE | 2016-06-28 10:40 | NUR ---
Held medication Patient blood pressure was 95/65 this AM. Patient had 40mg Lasix, 200mg Hydoxchloroquine, and 20mg Sildenafil due. MD was notified and said to give Sildenafil and retake BP in 1 hour to see if Lasix can be administered. Patient refused Hydoxcholorquine. BP 1 hour later was 86/62 and Lasix was held. MD notified.
--- NOTE | 2016-06-28 11:58 | NUR ---
Social Work: Brief Note Data: Per H&P, pt has hx of meth use. WIRE SPINNER will speak with MD about possible need for CD assessment. Pt does not require and initial assessment at this time. WIRE SPINNER will continue to follow. Assessment: Pt who is independent at baseline. Plan: Pt will d/c home via POV when medically stable, WIRE SPINNER to speak with MD regarding CD assessment. WIRE SPINNER will continue to follow. TANESHA Devine Addendum: 06/28/16 at 1357 by BERTRAND MORENO SS WIRE SPINNER spoke with . Hospitalist states CD assessment needed. WIRE SPINNER awaiting likely CD assessment orders from . TANESHA Devine
--- NOTE | 2016-06-28 12:19 | NUR ---
Palliative Care Palliative Care received verbal order from Dr Garcia 06/28/16 to assist with goals of care. Patient is a 40 year old woman with heart failure and a hx of IV heroin/methamphetamine abuse. Per Dr Banks in morning discharge rounds, heart failure is worse due to continued drug use and medication non-compliance. Bonnie Espana (mom) [phone], Palliative Care to follow. Tracie Lovelace
--- NOTE | 2016-06-28 14:34 | NUR ---
Pain Patient had complaints of PARIKH pain of 4/10 and requested Motrin. MD was notified and Motrin was ordered. Patient was administered pain medication and when reassessed 20 min later, patient was sleeping.
--- NOTE | 2016-06-28 16:21 | NUR ---
LOC Patient slept most of day and diaphoretic. Patient would wake up when spoken to and then fall back asleep. Patient mother called several times and patient did not wake up to answer phone to talk with mother. Patient ate 100% for breakfast and 50% for lunch with a couple snacks of orange sherbert after lunch. Patient remains on 2L supplemental oxygen with saturations ranging from 94-99%. Nurse tried to titrate o2 down to 1L, but patient desaturated into high 70's, so patient quickly placed back on 2L supplemental oxygen. Patient had complaint of headache today and was administered Motrin, which was effective.
[2016-06-29] VITALS (10 sets, daily range): BP systolic 91–100; BP diastolic 59–69; PULSE 64–114; RESP 16–20; O2SAT 90–98
[2016-06-29] MEDS: Sodium Chloride LOK Flush 10 mL Syringe IVFLUSH SCH ×3 (00:37→16:45)
[2016-06-29] MEDS: Heparin 5,000 Unit/mL Inj SUBQ SCH ×3 (00:38→16:30)
--- NOTE | 2016-06-29 00:57 | PCM.PNMED ---
Subjective Date of Service June 29, 2016 Subjective Patient is a little bit more awake today. She is asking for ibuprofen for generalized aches and pains. She is still very somnolent. She has no other new complaints. Exam Vital Signs Vital Sign - Last Date Time Temp Pulse Resp B/P Pulse Ox O2 Delivery O2 Flow Rate FiO2 06/29/16 00:38 36.9 95 16 96/60 98 Nasal Cannula 2.00 Intake and Output 06/28/16 06/28/16 06/29/16 Cumulative From/Thru 15:00 23:00 07:00 06/26/16 16:43 - 06/28/16 21:15 Intake Total 550 ml 850 ml Output Total 350 ml 1625 ml Balance 200 ml -775 ml Intake Oral 540 ml 840 ml IV Total 10 ml 10 ml Output Urine Total 350 ml 1625 ml # Bowel Movements 0 Exam General: Patient is very somnolent. However she is much more alert and conversive today than she was yesterday. HEENT: Head is atraumatic and normocephalic. Eyes: Pupils are equally round and reactive to light and accommodation. Extraocular muscles are intact. Sclera are white, anicteric. Subconjunctival mucosa is pink. Ears and nose are unremarkable. Oropharynx: There is no mucosal lesions, there is no thrush, there is no pharyngitis. Neck: Is supple, there are no nodes, or masses or tenderness. Chest: Is clear to auscultation and percussion. There are no rales, rhonchi, wheezes or rubs. Heart: Rate is slightly tachycardic, rhythm is regular. There is no new murmur , rub or gallop. Abdomen: Good bowel sounds are present. Abdomen is soft, nontender, no organomegaly or masses were appreciated. Extremities: Are symmetrical and well perfused. There is no edema, there is no cellulitis, no rash. Neurologic: There are no focal neurological deficits. Cranial nerves II through XII are intact. There are no sensory or motor deficits. Psychiatric: Patients mood is calm and she shows no sign of agitation. Genital: Deferred Rectal: Deferred Lab and Diagnostics Result Diagram: 06/26/16 1650 06/27/16 0735 Microbiology MRSA nasal screen is negative. Blood cultures are negative to date. X-Rays, CTs and MRIs X-RAY CHEST ONE VIEW, PORTABLE 06/26 IMPRESSION: No acute process. Dictated by: Michelle Webster M.D. on 06/26/2016 at 17:11 Approved by: Michelle Webster M.D. on 06/26/2016 at 17:11 -- CT ANG CHEST/ABD W/WO CONTRAST 06/26 IMPRESSION: 1. No acute process. 2. Small pericardial effusion. 3. Cardiomegaly. 4. No evidence of aortic dissection, nor aneurysm. Dictated by: Michelle Webster M.D. on 06/26/2016 at 21:55 Approved by: Michelle Webster M.D. on 06/26/2016 at 21:58 Cardiac Echo Impressions Echocardiogram Report Name: PRASANNA SLOAN CStudy Date: 0 06/27/2016 Height: 62 in Hospital Exam Location: [facility] Weight: 124 lb Gender: Female BSA: 1.6 m2 : 1975 Age: 40 yrs BP: 78/54 mmHg Reason For Study: SOB Ordering Physician: Performed By: [facility] Interpretation Summary 1) Small left ventricular cavity with normal thickness and normal systolic function (EF 60-65%). 2) Severely dilated right ventricle with moderately to severely reduced function. 3) Flattened interventricular septum, suggestive of right ventricular pressure overload. 4) Moderate tricuspid regurgitation present. 5) Severe pulmonary hypertension present, estimated systolic pulmonary pressures of 90mmHG. 6) Moderate pericardial effusion present, with no echo evidence of tamponade physiology. 7) Compared to the Echo done 11/04/2015, cor pulmonale and pulmonary hypertension have both worsened and worsening of pericardial effusion is a also a poor prognostic sign. Assessment & Plan Prasanna Sloan is a 39 year old female with Core Pulmonale with Right sided heart failure, pulmonary hypertension and a prior history of IV drug abuse presents to [facility] emergency department via EMS with chest pain 1. Acute on Chronic Right sided Heart Failure and Pulmonary Hypertension. Present on admission Likely due to non compliance with medications. Patient claims today that she was noncompliant with her medications over the last 3 weeks as she was in care home and they would not prescribe her heart medications in care home. - Continue diuretics with Lasix 40 mg IV bid. Monitor electrolytes closely. - We will monitor weight and fluid status daily - The complete echo shows worsening of patient's pulmonary hypertension and now has a pericardial effusion which is a poor prognostic sign according to Dr. Arreola cardiology. - We will resume Tadalafil and Ambrisentan to treat Pulmonary hypertension - Cardiology consulted and appreciate Dr. Arreola's time and expertise. - Would strongly consider Pulmonology consultation, Dr Winters is familiar with the patient 2 Hypotension. Present on admission Patient reporting she has chronically low BP. Consider infection but no source is obvious at this time - We will monitor closely - No fluids given due to acute congestive heart failure - We consider workup for Adrenal insufficiency 3 Elevated Transaminitis due to Shock liver. Present on admission Hypotension noted with history of Chronic Hepatitis C 4 Systemic Lupus Erythematosus Chronic and presumed active due to not current active immuno suppressive medications - We will need to follow up locally with Dr Suarez or Rheumatology clinic at 5 History of Heroine/Methamphetamine Abuse - Urine drug screen - Acetaminophen as needed for mild pain/fever/headache - Bowel regimen as needed - Antiemetic as needed Disposition: Patient likely to be here another 24-48 hours for further evaluation and treatment of the above. Consider pulmonary consultation. . Pain Evaluation: Adequate Pain Control GI Prophylaxis: Not indicated VTE Prophylaxis: Sub-Q Heparin (Unfractionated) VTE Mechanical Devices: Intermittant Pneumatic CD Resuscitation Status: CPR: Attempt Resuscitation Robert Banks MD June 29, 2016 00:57
--- NOTE | 2016-06-29 05:18 | NUR ---
PT ACTIVITY Pt has remained in bed, appeared to be sleeping all shift. Pt does awaken easily, opens eyes briefly, answers questions appropriately. Pt has been using call light. Pt up to BSC, SBA. No complaints. Continue to monitor. Call light in reach. Bed alarm on. Intentional rounding.
[2016-06-29 09:24] LABS: BASOPHILS % (AUTO) 0.3 % (0-3); EOSINOPHILS % (AUTO) 1.7 % (0-5); MONOCYTES % (AUTO) 7.6 % (4-12); Mean Corpuscular Hemoglobin 29.1 pg (27.0-35.0); Mean Corpuscular Volume 83.5 fL (81-100); Platelet Count 368 bil/L (150-400)
[2016-06-29] MEDS: Hydroxychloroqine 200 mg Tablet PO SCH (09:36)
[2016-06-29 09:52] LABS: Magnesium 1.9 mg/dL (1.6-2.6)
[2016-06-29] MEDS ORDERED: Furosemide 10 mg/mL 4 mL Inj IVPUSH ONE (12:15)
[2016-06-29] MEDS ORDERED: AMBR10TA3 PO (13:17)
[2016-06-29] MEDS ORDERED: TADA20TA31 PO (13:18)
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
--- NOTE | 2016-06-29 14:21 | PCM.PNMED ---
Subjective Date of Service June 29, 2016 Subjective pt c/o sore throat, dry cough, denied n/v very mild chest pain, no SOB, no PND no chills, fever, Exam Vital Signs Vital Sign - Last Date Time Temp Pulse Resp B/P Pulse Ox O2 Delivery O2 Flow Rate FiO2 06/29/16 07:49 Supplement Oxygen 06/29/16 05:02 99 06/29/16 04:05 36.6 18 91/63 96 2.00 Intake and Output 06/28/16 06/28/16 06/29/16 Cumulative From/Thru 15:00 23:00 07:00 06/26/16 16:43 - 06/29/16 06:29 Intake Total 550 ml 236 ml 1086 ml Output Total 350 ml 400 ml 2025 ml Balance 200 ml -164 ml -939 ml Intake Oral 540 ml 236 ml 1076 ml IV Total 10 ml 10 ml Output Urine Total 350 ml 400 ml 2025 ml # Bowel Movements 0 Exam NAD, comfortably laying down on the bed no JVD, MMM, no LAD RRR, nl s1, s2 no mrg CTAB, no w,c S,ND,NT,normoactive BS+ warm, trace pitting edema bilaterally, pulses 2/2 IVs and Medications Medications Reviewed: Medications were reviewed in detail Lab and Diagnostics Result Diagram: 06/26/16 1650 06/27/16 0735 Microbiology MRSA nasal screen is negative. Blood cultures are negative to date. X-Rays, CTs and MRIs X-RAY CHEST ONE VIEW, PORTABLE 06/26 IMPRESSION: No acute process. Dictated by: Michelle Webster M.D. on 06/26/2016 at 17:11 Approved by: Michelle Webster M.D. on 06/26/2016 at 17:11 -- CT ANG CHEST/ABD W/WO CONTRAST 06/26 IMPRESSION: 1. No acute process. 2. Small pericardial effusion. 3. Cardiomegaly. 4. No evidence of aortic dissection, nor aneurysm. Dictated by: Michelle Webster M.D. on 06/26/2016 at 21:55 Approved by: Michelle Webster M.D. on 06/26/2016 at 21:58 Cardiac Echo Impressions Echocardiogram Report Name: PRASANNA SLOAN CStudy Date: 06/27/2016 Height: 62 in Hospital Exam Location: [facility] Weight: 124 lb Gender: Female BSA: 1.6 m2 : 1975 Age: 40 yrs BP: 78/54 mmHg Reason For Study: SOB Ordering Physician: Performed By: Catalina [facility] Interpretation Summary 1) Small left ventricular cavity with normal thickness and normal systolic function (EF 60-65%). 2) Severely dilated right ventricle with moderately to severely reduced function. 3) Flattened interventricular septum, suggestive of right ventricular pressure overload. 4) Moderate tricuspid regurgitation present. 5) Severe pulmonary hypertension present, estimated systolic pulmonary pressures of 90mmHG. 6) Moderate pericardial effusion present, with no echo evidence of tamponade physiology. 7) Compared to the Echo done 11/04/2015, cor pulmonale and pulmonary hypertension have both worsened and worsening of pericardial effusion is a also a poor prognostic sign. Assessment & Plan Prasanna Sloan is a 39 year old female with Core Pulmonale with Right sided heart failure, pulmonary hypertension and a prior history of IV drug abuse presents to [facility] emergency department via EMS with chest pain 1.chest pain with acute on Chronic Right sided Heart Failure with worsened pHTN , Present on admission, presumably in the setting of underlying MCTD and non compliance with medications. repeat TTE 06/29 showed markerd pHTN, [id number], no McConnells sign suggestive of PE, moderate pericardial effusion. no tamponade physiology. -chest pain almost resolved, troponins peaked at 0.027 06/27 then normalized -continue diuretics lasix 40mg iv qd or bid per cardiology, monitor VS closely, hold if BP drops MAP<65, -appreciate management from cardiology, will consult pHTN clinic at or in house for further recs, pt may require steroid given severe, worsened pHTN -resumed Tadalafil and Ambrisentan to treat Pulmonary hypertension, reportedly pt only has 3pills of Ambrisentan, brought in to hospital today. -O2 supplement as needed 2 chronic hypotension, tachycardia, POA, likely in the setting of severe pHTN, decreased preload, no s/s of infectin. -closely monitor for now, 3 mild Transaminitis likely in the setting chronic history of Chronic Hepatitis C 4 MCTD,Systemic Lupus Erythematosus, only on Plaquinil, as above 5 History of Heroine/Methamphetamine Abuse, on Urine drug screen, appreciate cash posting specialist merced 6.sore throat, swelling, no exudate/ulcer/cervical LAD, no s/s of bacterial pharyngitis, -will get viral PCR, strep throat culture, -Lidocaine spray for pain as needed Disposition: Patient likely to be here another 24-48 hours for further evaluation and treatment of the above. Consider pulmonary consultation. addendum> as per , Dr.Leary Cardenas at pulmonary, Ambrisentan and Tadalafil will be refilled and pt will follow up in the clinic with on 08/02. Otherwise, no further recommendation was given. It was suggested that pt may have WHOgr1 PAH, likey due to Methamphatamine or MCTD. As per , also no further recommendation was noted. Goal is to optimize volume status, symptomatic control and d/c with two PAH meds. GI Prophylaxis: Not indicated VTE Prophylaxis: Sub-Q Heparin (Unfractionated) VTE Mechanical Devices: Intermittant Pneumatic CD Resuscitation Status: CPR: Attempt Resuscitation Time spent 35min Dayton Gamboa MD June 29, 2016 09:10
--- NOTE | 2016-06-29 14:26 | NUR ---
Palliative care note FCTM D/A: Case discussed in PC rounds. Phone call to pt friend Ines at [phone], per pt request to ask her to meet with PC team today. Ines agrees to 1100 FCTM. She is late to this meeting so that PC team meets with both pt individually as well as with Ines. Here are pt contacts; 1. Friend Ines [place]ter[place] [address] [facility] [place] [id number]. At this time, pt wishes for Ines to be her DPOA. . Pt is given DPOA paperwork and informed about how to fill out, including need for either two witnesses or a director of public safety. Both pt and Ines have a medical background, although this is not how they met. 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 Pt lives locally in a small trailer and it is identified by both pt and Ines that it will not be optimal for pt to return to the trail. They plan on discussing this further. Pt has family in the [facility] and may consider moving to that part of the [facility] at some time. Pt lives alone with her dog Aleksandra, who is a dark brown pit bull that she adopted once she learned that she had a serious illness. Pt salvatore Goldman (sp?) also present, via speak phone, for initial part of conversation. He is currently in [facility] and was obviously distraught, having heard more dire news about pt prognosis, a few minutes prior. The phone connection is lost for him and he is not able to continue with meeting. Pt has three children. Dalila Caceres aged 23 ( [phone]) , Jose Juan Caceres aged 20 and Michael (last name unknown) aged 4. Dalila and Michael live in [place] with pt mother, whose name is Bonnie Janie. Bonnie's phone number is [phone]. Jose Juan is living in [place] with his father, pt ex spouse who also struggles with addiction issues. Dalila is getting in August of 2016. Pt has a cousin, with whom she is close, also in [place] who is offering to have pt come and stay with her. This cousin is Noni Wilcox who can be reached at [phone]. Pt father also lives with Noni. Pt seen down at by life skills worker Ronald Bo MD, who manages the medications for her pulmonary hypertension (Adcirca or tadalafil, Letairis or ambrisentun and Torsemide, similar to Lasix. ) Pt is out of some of her meds and will be calling to discuss with Dr. Bo's office. It appears that the Letairis may need to be special ordered from an online pharmacy and delivered to pt home. Discuss with pt her current medical condition and Dr. Garcia's estimate that with the more recent and rapid progression of her pulmonary hypertension, she has about a one year life expectancy, should she be able to take her medications religiously on a daily basis. Pt indicates that when she is taking her meds, she is more functional than she currently presents. She affirms that she was not able to take her meds as she was in senior living. She believes that she had a court date in [facility] on 06/28/16 [address] date in [facility] on 06/30/16. Ines has brought in pt purse with her medications and court paperwork. Ines to contact the courts about dates and how to communicate with them about pt illness and her being in the hospital during the hearing times. Hospice is discussed and pt indicates she is familiar with hospice as her grandmother was a strategic client executive in [place]. Discuss that pt may not be currently eligible for hospice, but if not, that home health may be an option. Briefly discuss the concept of homebound. Pt has seen residents clinic and established care there following her ICU stay at another facility in Oct. Dr. Ordonez is able to discuss with Dr. Gamboa who is indicating that perhaps pt will discharge on 07/01/16. PC has offered to discuss with pt family via conference call with pt present. Pt notes that family is aware of diagnosis but not current severity. She indicates that she is worried that family will be very emotional when they find out current news. P: Palliative care to follow. Tamra Zaragoza [facility], [facility]
[2016-06-29] MEDS: TADALAFIL 20 MG PO SCH (14:59)
[2016-06-29] MEDS: Benzocaine (Hurricaine) 20% Unit-Dose Spray MUC_MEMBRM PRN ×2 (15:27→22:44)
[2016-06-29] MEDS: AMBRISENTAN 10 MG PO SCH (15:27)
--- NOTE | 2016-06-29 17:17 | NUR ---
Sort throat/swallowing Pt reported sore throat & had one episode of emesis r/t swallowing difficulty, MD notified who ordered respiratory panel and throat swab in addition to PRN throat pain/comfort medications. Pt reports feeling slightly better, continuing to monitor.
[2016-06-30] VITALS (18 sets, daily range): BP systolic 85–103; BP diastolic 45–72; PULSE 74–106; RESP 16–20; O2SAT 92–96
[2016-06-30] MEDS: Sodium Chloride LOK Flush 10 mL Syringe IVFLUSH SCH ×3 (00:05→17:10)
[2016-06-30] MEDS: Heparin 5,000 Unit/mL Inj SUBQ SCH ×3 (00:05→16:30)
[2016-06-30 05:53] LABS: BASOPHILS % (AUTO) 0.4 % (0-3); EOSINOPHILS % (AUTO) 1.9 % (0-5); Mean Corpuscular Hemoglobin 29.6 pg (27.0-35.0); Mean Corpuscular Volume 84.3 fL (81-100); NEUTROPHILS % (AUTO) 54.4 % (40-74); Platelet Count 395 bil/L (150-400)
[2016-06-30 06:06] LABS: Phosphorus 3.8 mg/dL (2.5-4.9)
--- NOTE | 2016-06-30 06:39 | NUR ---
Fever,Soar Throat Low grade fever at late pm, T 37.8, BP 95/59 HR 114 RR20 at that time. Cough, soar throat,swollen yellowish exudate noticed at tonsils. Dr. Molly currie, no order given. Ibuprofen and Hurricaine spray administered, fever resolved, soar throat improved, HR slow down to 80s-90s. Pt sleeping most of night.
[2016-06-30] MEDS ORDERED: Furosemide 10 mg/mL 4 mL Inj IVPUSH SCH (08:30)
--- NOTE | 2016-06-30 09:04 | PCM.PALLBR ---
Palliative Care Recommendation Summary of palliative recommendations: Symptom management (Pain/other) 1.Sore Throat pain- Treat symptomatically. Continue PRN Benzocaine spray. Viral culture neg. Strep C&S prelim result negative. 06/30: No is not ready yet to have PC team join a conference call with her family to discuss her condition with them. 06/29: Family meeting with Palliative Care Team and patient: to discuss her goals of care at request of Dr. Gamboa Hospitalist and Dr. Garcia Cardiology. 1. Understanding of her disease: Patient expresses dismay over her medical condition and also expressed concerns regarding the communication of her failing health to family members. Palliative Care team offered to discuss her prognosis with her family and pt via a conference call. She will consider this offer. She states she is worried that family will be very emotional when they find out current news. 2. The Palliative care team counseled the patient extensively regarding and placed order for Hospice evaluation at patient's request. Patient's grandmother is a Hospice nurse and she has positive feelings about Hospice. She states she is interested in Hospice if she qualifies for this service. 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 Her current palliative performance status is good, which may make disqualify her for Hospice right now. 3. Palliative care also tried to elicit information regarding patient's support systems. Please see initial consult note 06/29 and WILLARD Zaragoza' s 06/[address] Gamboa patient may potentially discharge Sunday to home. She has no family currently in this area. 4. The palliative care team coordinated with clinical pharmacy regarding possibility for substitution of medication Letairis. No substitution was available and patient will need to contact her outside pharmacy directly for refill on this medication. Pulmonary HTN and Pericardial effusion: managed by Dr. Ronald Bo pulmonary care. 1. Plan is to continue patient home medication tadalafil (Adcirca) 20 mg, takes 2 tabs daily for her pulmonary HTN. This is not on [facility] formulary. She was started on our substitute, Sildenafil on admission, this was stopped 06/29 when pt's home medication was brought in. 2. Plan is to continue patient home medication ambrisentan (Letairis) 10 mg daily. This is not on [facility] formulary. Patient has to special order this medication through her pharmacy. She currently has only three days of medication left. Her friend Ines will be helping with getting her medication refilled. 3. Holding home medication Torsemide 10 mg takes 2 tabs daily. Agree with substitution of Lasix as loop diuretic. We recommend pulmonary consult prior to discharge and this plan was discussed with Hospitalist Attending Dr. Gamboa. SLE: 1. Agree with continue home medication Hydroxychloroquine 200 mg daily DPOA/Advanced Directives/POLST: 1, The role of a DPOA was discussed 06/29 and forms were given to be filled out at patients leisure. Family/emotional support: Ines (Friend) [address] [place] [address]: Ines will help patient significantly by retrieving information regarding refills on her specialty meds Letairis. She plans to also help by contacting the patients family regarding her medical condition and prognosis. Other Family members include: Mother Bonnie Talamantes phone: [phone] Daughter Dalila (age 23) phone: [phone] Cousin Diane Wilcox phone: [phone] Son Jose Juan (age 20) who lives with ex- in [place] Son Nick (age 4) lives with Bonnie (grandmother) Spiritual support: not discussed Patient Goals: 1. Patient wants to be told the truth about his/her illness, even if it is unpleasant. 2. Patient would like to be told prognosis when it can be predicted, to better guide treatment decisions. Problems: Resuscitation Status Resuscitation Status: CPR: Attempt Resuscitation POLST Updates/Changes Previous POLST?: No Total time 35 minutes; >50% face to face with patient and/or family, providing counselling regarding plans and recommendations, and in care coordination with his/her medical teams. I also spent an additional [ ] minutes counseling for advanced care planning with the patient/the patients family/the surrogate decision maker. Palliative Brief Note Date of Service June 30, 2016 . 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 She came to [facility] ED 06/26 with complaint of substernal non-radiating chest pressure that began that morning. The patient reported SOB, generalized weakness , lightheadedness, and fever. She denied chills or abdominal pain, cough or fever. The patient is followed by [facility] Dr. Ronald Bo at for her pulmonary HTN. She currently takes tadalafil (Adcirca) 40 mg daily, as well as ambrisentan (Letairis) 10 mg daily for her pulmonary HTN. She is also on Torsemide 20 mg daily and hydroxychloroquine (Plaquenil) 200 mg daily for her Lupus. She has reportedly been non-compliant with her medications and takes the tadalafil and ambrisentan only 50% of the time and had stopped taking hydroxychloroquine for months before starting it again recently on Dr. Winters's advice. She had a recent ICU admission in October 2015 at the for her pulmonary hypertension and pericardial effusion. Echocardiogram on 11/01/15 showed normal LVEF, moderate RV dilation with mildly reduced function, pulmonary HTN with PA pressures of 47mmHg, flattened interventricular septum, and a small pericardial effusion. Hospital Course: She was admitted 06/26 for further evaluation of her chest pain. Unfortunately her Pulmonary HTN has rapidly progressed over the last 9 months. This admission, a repeat ECHO on 06/27/2016 showed worsening pulmonary HTN with pulmonary artery pressure of 90--doubled since her last echo 10/2015. Echo shows preservation of her LVEF, however also showed a dilated right atrium and ventricle. Cardiology has seen her and recommends supportive treatment with medications only for her heart. Pulmonary consult is pending to re-evaluate her progressive pHTN. In hospital, she began developing a sore throat, cough and yellow tonsillar exudate--viral PCR nose and throat culture is negative, strep throat C&S prelim result is negative. Today is Hospital Day 5. Subjective: She reports her throat is still sore. Somewhat worse than yesterday. Exam: General: alert, no apparent distress, sitting up in bed, talking on phone to ficlaudiae. HEENT: erythema at posterior pharynx, no exudates seen. PERRL, EOMI, nonicteric sclerae Extrem: trace pitting edema lower extremities Neuro: Alert and oriented x 4 with insight, speech clear, no focal CN issues, equal musculoskeletal strength. Lab and Diagnostics 06/30/16 0510 Microbiology MRSA nasal screen is negative. Blood cultures are negative to date. Tamia Ordonez MD June 30, 2016 09:04 The patient is followed by [facility] Dr. Ronald Bo at for her pulmonary HTN. She currently takes tadalafil (Adcirca) 40 mg daily, as well as ambrisentan (Letairis) 10 mg daily for her pulmonary HTN. She is also on Torsemide 20 mg daily and hydroxychloroquine (Plaquenil) 200 mg daily for her Lupus. She has reportedly been non-compliant with her medications and takes the tadalafil and ambrisentan only 50% of the time and had stopped taking hydroxychloroquine for months before starting it again recently on Dr. Winters's advice. She had a recent ICU admission in October 2015 at the for her pulmonary hypertension and pericardial effusion. Echocardiogram on 11/01/15 showed normal LVEF, moderate RV dilation with mildly reduced function, pulmonary HTN with PA pressures of 47mmHg, flattened interventricular septum, and a small pericardial effusion. Hospital Course: Unfortunately her Pulmonary HTN has rapidly progressed over the last 9 months. This admission, a repeat ECHO on 06/27/2016 showed worsening pulmonary HTN with pulmonary artery pressure of 90--doubled since her last echo 10/2015. Echo shows preservation of her LVEF, however also showed a dilated right atrium and ventricle. Tamia Ordonez MD June 30, 2016 09:04
[2016-06-30] MEDS: TADALAFIL 20 MG PO SCH (09:06)
[2016-06-30] MEDS: Senna-Docusate 8.6-50 mg Tablet PO PRN (09:07)
[2016-06-30] MEDS: Polyethylene Glycol (PEG) 17 Gm Powder PO PRN (09:07)
[2016-06-30] MEDS: AMBRISENTAN 10 MG PO SCH (09:08)
[2016-06-30] MEDS: Hydroxychloroqine 200 mg Tablet PO SCH (09:08)
--- NOTE | 2016-06-30 10:41 | PCM.PNMED ---
Subjective Date of Service June 30, 2016 Subjective pt had mild fever 37.8 BP remained 90s, but HR trends better 80s since ambrisentan started c/o mild sore throat, odynophasia, but no neck tenderness having dry cough, viral PCR, throat swab ngtd Exam Vital Signs Vital Sign - Last Date Time Temp Pulse Resp B/P Pulse Ox O2 Delivery O2 Flow Rate FiO2 06/30/16 09:17 89 89/60 06/30/16 08:51 36.8 95 Nasal Cannula 06/30/16 06:09 18 2.00 Intake and Output 06/29/16 06/29/16 06/30/16 Cumulative From/Thru 15:00 23:00 07:00 06/26/16 16:43 - 06/30/16 06:18 Intake Total 300 ml 400 ml 1786 ml Output Total 650 ml 300 ml 2975 ml Balance -350 ml 100 ml -1189 ml Intake Oral 300 ml 400 ml 1776 ml IV Total 10 ml Output Urine Total 650 ml 300 ml 2975 ml # Voids 1 1 # Bowel Movements 1 1 Exam NAD, comfortably laying down on the bed no JVD, MMM, no cervical LAD, mild erythema on tonsils, no exudates/ulcers RRR, nl s1, s2 no mrg CTAB, no w,c S,ND,NT,normoactive BS+ warm, trace pitting edema bilaterally, pulses 2/2 IVs and Medications Medications Reviewed: Medications were reviewed in detail Lab and Diagnostics Result Diagram: 06/30/16 0510 06/30/16 0510 Microbiology MRSA nasal screen is negative. Blood cultures are negative to date. X-Rays, CTs and MRIs X-RAY CHEST ONE VIEW, PORTABLE 06/26 IMPRESSION: No acute process. Dictated by: Michelle Webster M.D. on 06/26/2016 at 17:11 Approved by: Michelle Webster M.D. on 06/26/2016 at 17:11 -- CT ANG CHEST/ABD W/WO CONTRAST 06/26 IMPRESSION: 1. No acute process. 2. Small pericardial effusion. 3. Cardiomegaly. 4. No evidence of aortic dissection, nor aneurysm. Dictated by: Michelle Webster M.D. on 06/26/2016 at 21:55 Approved by: Michelle Webster M.D. on 06/26/2016 at 21:58 Cardiac Echo Impressions Echocardiogram Report Name: PRASANNA SLOAN CStudy Date: 06/27/2016 Height: 62 in Hospital Exam Location: [facility] Weight: 124 lb Gender: Female BSA: 1.6 m2 : 1975 Age: 40 yrs BP: 78/54 mmHg Reason For Study: SOB Ordering Physician: Performed By: Catalina Fairbanks [facility] HOSPITAL[facility] Interpretation Summary 1) Small left ventricular cavity with normal thickness and normal systolic function (EF 60-65%). 2) Severely dilated right ventricle with moderately to severely reduced function. 3) Flattened interventricular septum, suggestive of right ventricular pressure overload. 4) Moderate tricuspid regurgitation present. 5) Severe pulmonary hypertension present, estimated systolic pulmonary pressures of 90mmHG. 6) Moderate pericardial effusion present, with no echo evidence of tamponade physiology. 7) Compared to the Echo done 11/04/2015, cor pulmonale and pulmonary hypertension have both worsened and worsening of pericardial effusion is a also a poor prognostic sign. Assessment & Plan Prasanna Sloan is a 39 year old female with Core Pulmonale with Right sided heart failure, pulmonary hypertension and a prior history of IV drug abuse presents to [facility] emergency department via EMS with chest pain 1.chest pain with acute on Chronic Right sided Heart Failure with worsened pHTN , Present on admission, presumably in the setting of underlying MCTD and non compliance with medications. repeat TTE 06/29 showed markerd pHTN, [id number], no McConnells sign suggestive of PE, moderate pericardial effusion. no tamponade physiology. -chest pain almost resolved, troponins peaked at 0.027 06/27 then normalized -s/p lasix 40mg iv bid then daily, will switch to PO today pt seems close to euvolemic, -appreciate management from cardiology, -spoke to pulmonary, as per , Dr.Leary Cardenas, Ambrisentan and Tadalafil will be refilled and pt will follow up in the clinic with on 08/02. Otherwise, no further recommendation was given. It was suggested that pt may have WHOgr1 PAH, likey due to Methamphatamine or MCTD. As per , also no further recommendation was noted. Goal is to optimize volume status, symptomatic control and d/c with two PAH meds. -resumed Tadalafil and Ambrisentan -O2 supplement as needed -appreciate palliative care consult, consulted given severely advanced pHTN, likely irreversible 2 chronic hypotension, tachycardia, POA, likely in the setting of severe pHTN, decreased preload, no s/s of infectin. -closely monitor for now, 3 mild Transaminitis likely in the setting chronic history of Chronic Hepatitis C 4 MCTD,Systemic Lupus Erythematosus, only on Plaquinil, as above 5 History of Heroine/Methamphetamine Abuse, on Urine drug screen, appreciate older worker specialist evjeremi 6.sore throat, swelling, no exudate/ulcer/cervical LAD, no s/s of bacterial pharyngitis, likely viral URI, had mild fever37.8 06/29. viral PCR, strep throat culture ngtd. -Lidocaine spray for pain as needed -monitor sx for now. 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
--- NOTE | 2016-06-30 13:02 | NUR ---
Palliative care note D/A: Case discussed this am in PC rounds and then later with Sil ALMENDAREZ. Phone call to Oumou at [facility] to ask if 1.) pt qualifies for hospice services at this time and 2.) if pt wanted to sign on with [facility]-would they be able to provide her medications? Please note that if [facility] is not able to provide meds, a bigger hospice may have a different answer. It is possible that pt may eventually move to [facility] and might sign on to hospice services there. Also note that pt plans to follow up in July with her specialty account services analyst at , Dr. Bo. Discussed with Emily ALMENDAREZ, lauryn. P: Palliative care to follow. Addendum: 06/30/16 at 1312 by MATTHEW MUNSON PC note amendment Tamra GLEASON [facility] Addendum: 06/30/16 at 1516 by MATTHEW MUNSON PC note amendment D/A: Met with pt to provide support. She has not figured out yet where she will be living. This worker assists her in tracking down case management services thru [facility], that were not behaviorally health based. Learn that [facility] of [facility] was trying to find pt. [facility] [phone]. Pt able to connect with Opal there and arrange for appt on 07/04/16 at 1:00. Pt notes her insurance will be lapsing after the end of the month and will discuss this and housing with [facility]. Learn from [facility] that pt is not currently eligible and if came on services, would not be able to have medications paid for through [facility]. (Cose of meds is about 10K a month.) However, should pt go off her meds, could qualify for [facility] at that time. Have discussed with pt that [facility] will follow her post dc. This worker to call her to arrange appt once she is dc'ed P: Palliative care to follow as needed. Tamra GLEASON, CCM
--- NOTE | 2016-06-30 15:15 | NUR ---
Pain/Oxygen Pt c/o CP when up on the commode, stated it completed cleared up with lying down. Also states to feel "fluid building up on my lungs". D/t parameters from the provider, this AM IV lasix was held since SBP was <100. Primary RN contacted Hospitalist, was told a 1x dose will be ordered of IV lasix now and parameters will be lowered since pt states that SBP is normally in the 90s. Pt remains on oxygen d/t desaturation on RA. C/o nasal congestion, was on NC, now on 1L oximask. saturation at 92% with slight variation.
--- NOTE | 2016-06-30 15:53 | NUR ---
CHF/teaching Pt with CHF pamphlet at bedside. Asked to read over it and ask questions. Lot's of teaching provided and questions answered. Pt appears passive. c/o being tired.
[2016-06-30] MEDS ORDERED: Furosemide 10 mg/mL 4 mL Inj IVPUSH ONE (16:05)
--- NOTE | 2016-06-30 16:07 | NUR ---
Change of shift Report given to Sergio Cardona RN. Pt appears comfortable and resting.
--- NOTE | 2016-06-30 16:08 | NUR ---
Social work note - Substance Use assessment No [place] - 40 yr old with active Methamphetamine use. Current circumstances: pt is currently admitted for decompensated Heart failure. She has been actively snorting meth. She is close to homeless - currently staying in a friend's travel trailer. Limited family support. Pt has two adult children and a 4 yr old that is being raised by Pt's mother in [place]. Hx of Substance use: Pt states that she has been using drugs for years. She had long hx of Heroin use - went to detox and 6 months inpt treatment in [place]. She denies any ETOH. Snorts meth daily. Hx of withdrawal: Denies any withdrawal symptoms from Meth - states that she used meth for energy - feels exhausted without it. Hx of sobriety: Pt states that she has not touched heroin since rehab. She admits to legal problems and time spend in [facility]. Limited social supports - not connected with AA/NA at this time. Pt's perception of use: Pt states that she knows if she keeps using she will . She spoke with Palliative Care who identified her heart failure and affects of drugs. She states that she does not want treatment or rehab - states that she knows what she needs to do. WEB ASSISTANT offered referral to [facility] - Pt states she would like outpt counseling that deals with both her depression/anxiety and her drug use. WEB ASSISTANT provided phone numbers to call access to enroll in services. Suicide Risk: Pt denies any suicidal ideations - states she wants to live for her kids and is not ready to , would never kill herself. Recommendations: WEB ASSISTANT recommends close follow up with [facility] - for substance use and mental health services. VICTORINO Mckeon
--- NOTE | 2016-06-30 16:17 | NUR ---
Taking over care for pt. Report given by Katrina Pickens RN.
[2016-06-30] MEDS: Benzocaine (Hurricaine) 20% Unit-Dose Spray MUC_MEMBRM PRN ×2 (17:13→20:00)
[2016-06-30] MEDS: Ondansetron 2 mg/mL 2 mL Inj IVPUSH PRN (20:52)
--- NOTE | 2016-06-30 21:07 | NUR ---
Patient condition Patient reported feeling chest pain/pressure that was "different from before" at about 2000. Vitals taken, BP low at 88/52. Primary RN administered Ibuprofen and Zofran, per patient request. Patient also reported concern for leg and hand swelling. Reviewed meds- given IV Lasix two hours prior by day RN. paged, new orders for stat EKG and to check blood pressures every 15 minutes for the next hour (from [id number]). BP at 2100 was 85/51, MD aware. MD requested to be updated if BP's drop any further. Patient, primary RN and ELECTROMEDICAL EQUIPMENT TECHNICIAN updated on new orders received.
[2016-07-01] VITALS (10 sets, daily range): BP systolic 84–96; BP diastolic 38–59; PULSE 74–106; RESP 16–18; O2SAT 90–95
[2016-07-01] MEDS: Heparin 5,000 Unit/mL Inj SUBQ SCH ×3 (00:46→17:07)
[2016-07-01] MEDS: Sodium Chloride LOK Flush 10 mL Syringe IVFLUSH SCH ×3 (00:47→17:07)
[2016-07-01] MEDS: AMBRISENTAN 10 MG PO SCH (09:02)
[2016-07-01] MEDS: Senna-Docusate 8.6-50 mg Tablet PO PRN (09:02)
[2016-07-01] MEDS: Hydroxychloroqine 200 mg Tablet PO SCH (09:03)
[2016-07-01] MEDS: TADALAFIL 20 MG PO SCH (09:04)
--- NOTE | 2016-07-01 10:45 | PCM.PNMED ---
Subjective Date of Service July 01, 2016 Subjective She is seen today in her room to follow up the pulmonary hypertension and congestive heart failure symptoms. She says she felt horrible yesterday and is not quite sure how she feels yesterday but hopes that it goes better. She wonders if she had a viral infection yesterday. She is still coughing. Her weight is down by 0.3 kg since yesterday. There are no new labs today. Blood pressures running low 91/57. She is afebrile. Exam Vital Signs Vital Sign - Last Date Time Temp Pulse Resp B/P Pulse Ox O2 Delivery O2 Flow Rate FiO2 07/01/16 06:34 Supplement Oxygen 07/01/16 05:59 36.5 74 16 91/57 91 06/30/16 14:00 1.00 Intake and Output 06/30/16 06/30/16 07/01/16 Cumulative From/Thru 15:00 23:00 07:00 06/26/16 16:43 - 07/01/16 06:34 Intake Total 1455 ml 0 ml 3241 ml Output Total 800 ml 0 ml 3775 ml Balance 655 ml 0 ml -534 ml Intake Oral 1455 ml 0 ml 3231 ml IV Total 10 ml Output Urine Total 800 ml 0 ml 3775 ml # Voids 1 # Bowel Movements 1 0 2 Exam She is alert and oriented, in no apparent distress Lungs are clear to auscultation bilaterally Heart is regular rate and rhythm no murmur Extremities have no ankle edema. IVs and Medications Medications Reviewed: Medications were reviewed in detail Lab and Diagnostics Result Diagram: 06/30/16 0510 06/30/16 0510 Microbiology MRSA nasal screen is negative. Blood cultures are negative to date. X-Rays, CTs and MRIs X-RAY CHEST ONE VIEW, PORTABLE 06/26 IMPRESSION: No acute process. Dictated by: Michelle Webster M.D. on 06/26/2016 at 17:11 Approved by: Michelle Webster M.D. on 06/26/2016 at 17:11 -- CT ANG CHEST/ABD W/WO CONTRAST 06/26 IMPRESSION: 1. No acute process. 2. Small pericardial effusion. 3. Cardiomegaly. 4. No evidence of aortic dissection, nor aneurysm. Dictated by: Michelle Webster M.D. on 06/26/2016 at 21:55 Approved by: Michelle Webster M.D. on 06/26/2016 at 21:58 Cardiac Echo Impressions Echocardiogram Report Name: PRASANNA SLOAN CStudy Date: 06/27/2016 Height: 62 in Hospital Exam Location: [facility] Weight: 124 lb Gender: Female BSA: 1.6 m2 : 1975 Age: 40 yrs BP: 78/54 mmHg Reason For Study: SOB Ordering Physician: Performed By: Catalina Fairbanks [facility] Interpretation Summary 1) Small left ventricular cavity with normal thickness and normal systolic function (EF 60-65%). 2) Severely dilated right ventricle with moderately to severely reduced function. 3) Flattened interventricular septum, suggestive of right ventricular pressure overload. 4) Moderate tricuspid regurgitation present. 5) Severe pulmonary hypertension present, estimated systolic pulmonary pressures of 90mmHG. 6) Moderate pericardial effusion present, with no echo evidence of tamponade physiology. 7) Compared to the Echo done 11/04/2015, cor pulmonale and pulmonary hypertension have both worsened and worsening of pericardial effusion is a also a poor prognostic sign. Assessment & Plan Prasanna Sloan is a 39 year old female with Core Pulmonale with Right sided heart failure, pulmonary hypertension and a prior history of IV drug abuse presents to [facility] emergency department via EMS with chest pain 1.chest pain with acute on Chronic Right sided Heart Failure with worsened pHTN , Present on admission, presumably in the setting of underlying MCTD and non compliance with medications. repeat TTE 06/29 showed markerd pHTN, [id number], no McConnells sign suggestive of PE, moderate pericardial effusion. no tamponade physiology. -chest pain is now gone, troponins peaked at 0.027 06/27 then normalized -s/p lasix 40mg iv bid then daily, and changed to PO yesterday, with continued diuretic effect noted on weight. Pt seems close to euvolemic, -appreciate management from cardiology, -spoke to pulmonary, as per , Dr.Leary Cardenas, Ambrisentan and Tadalafil will be refilled and pt will follow up in the clinic with on 08/02. Otherwise, no further recommendation was given. It was suggested that pt may have WHOgr1 PAH, likey due to Methamphatamine or MCTD. As per , also no further recommendation was noted. Goal is to optimize volume status, symptomatic control and d/c with two PAH meds. -resumed Tadalafil and Ambrisentan -O2 supplement as needed -appreciate palliative care consult, consulted given severely advanced pHTN, likely irreversible 2 chronic hypotension, tachycardia, POA, likely in the setting of severe pHTN, decreased preload, no s/s of infectin. -closely monitor for now, 3 mild Transaminitis likely in the setting chronic history of Chronic Hepatitis C 4 MCTD,Systemic Lupus Erythematosus, only on Plaquinil, as above 5 History of Heroine/Methamphetamine Abuse, on Urine drug screen, appreciate retail performance specialist eval 6.sore throat, swelling, no exudate/ulcer/cervical LAD, no s/s of bacterial pharyngitis, likely viral URI, had mild fever37.8 06/29. viral PCR, strep throat culture ngtd. -Lidocaine spray for pain as needed -She seems to be better today and is likely to be able to go home tomorrow. Disposition: likely d/c tomorrow home, appreciate SW/CM for buttermaker plan, ensure Refills of pHTN meds prior to dc GI Prophylaxis: Not indicated VTE Prophylaxis: Sub-Q Heparin (Unfractionated) VTE Mechanical Devices: Venous Foot Pump Resuscitation Status: CPR: Attempt Resuscitation Zarina Wild MD July 01, 2016 09:17
--- NOTE | 2016-07-01 15:11 | NUR ---
O2/Anxious Pt anxious to go home. Arranged to stay with family member, Marline. Marline in visiting today, pt asked provider to come in while family at bedside to help answer questions. Pt now on RA, sating 92% with slight variation. Denies pain/SOB.
[2016-07-01] MEDS: Ondansetron 2 mg/mL 2 mL Inj IVPUSH PRN (21:40)
--- NOTE | 2016-07-01 22:06 | NUR ---
BP Pt complained of chest pressure and weakness, coughing. Gave Tessalon pearls for cough, BP low at 84/38 at 2116. Pt began to feel better, BP 94/49 at 2135. Pt resting now, will continue to monitor.
[2016-07-02 00:33] VITALS: BP 93/56; PULSE 89; RESP 18; O2SAT 94
[2016-07-02] MEDS: Heparin 5,000 Unit/mL Inj SUBQ SCH ×2 (01:18→09:15)
[2016-07-02] MEDS: Sodium Chloride LOK Flush 10 mL Syringe IVFLUSH SCH ×2 (01:18→08:56)
[2016-07-02 04:48] VITALS: PULSE 95
[2016-07-02 05:38] VITALS: BP 92/56; PULSE 90; RESP 20; O2SAT 94
--- NOTE | 2016-07-02 05:44 | NUR ---
Chest Pressure Pt complained of chest pressure, non radiating 5/10 during the night. Placed pt on 1L O2 oxymask. Sats 91-92%. BP:93/55. Tele: SR 90's per cardiac monitor technician. Pt refused Tylenol for pain. Call light within reach, using appropriately. Will continue to monitor.
--- NOTE | 2016-07-02 05:47 | NUR ---
Uneventful Night: Pt rested rest of night with eyes closed with no further complaints of chest pressure. No complaints of SOB or N/V. Bed locked, low position. Call light within reach. Hourly rounding in place. Pleasant and cooperative with care.
[2016-07-02] MEDS: AMBRISENTAN 10 MG PO SCH (08:30)
[2016-07-02] MEDS ORDERED: Furosemide 10 mg/mL 10 mL Inj IVPUSH SCH (08:30)
[2016-07-02] MEDS: Polyethylene Glycol (PEG) 17 Gm Powder PO PRN (08:56)
[2016-07-02] MEDS: Hydroxychloroqine 200 mg Tablet PO SCH (08:56)
[2016-07-02] MEDS: TADALAFIL 20 MG PO SCH (08:57)
[2016-07-02 09:45] VITALS: BP 96/61; PULSE 85; RESP 18; O2SAT 94
--- NOTE | 2016-07-02 10:31 | DRSVH ---
PROCEDURE: X-RAY CHEST, TWO VIEWS ([id number]) INDICATIONS: cough TECHNIQUE: 2 views of the chest were acquired. COMPARISON: [facility], CR, XR CHEST 1VW (PORTABLE), 06/26/2016, 16:46. FINDINGS: Surgical changes and devices: None. Lungs and pleura: Hyperinflation. Left basilar pulmonary opacities otherwise the lungs are clear. Tra ce left pleural effusion Mediastinum: Enlarged cardiomediastinal silhouette.. Bones and chest wall: No suspicious bony abnormalities. Soft tissues appear unremarkable. IMPRESSION: 1. Left basilar atelectasis or very early infiltrate with associated trace pleural effusion. 2. Enlargement of the cardiomediastinal silhouette. Dictated by: Shakeel Justin M.D. on 07/02/2016 at 10:27 Approved by: Shakeel Justin M.D. on 07/02/2016 at 10:30
[2016-07-02 11:42] VITALS: PULSE 93
--- NOTE | 2016-07-02 12:17 | DRSVH ---
[facility] [address] [place] [address] Echocardiogram Report Name: PRASANNA SLOAN CStudy Date: 0 07/02/2016 Height: 62 in Hospital Exam Location: [facility] Weight: 126 lb Gender: Female BSA: 1.6 m2 : 1975 Age: 40 yrs BP: 92/56 mmHg Reason For Study: Pericardial Effusion Ordering Physician: HOSPITALIST AYUSHHPerformed By: Oneil Ortega Referring Physician: Zarina HAYWARD Interpretation Summary 1) Small left ventricular cavity with normal thickness and normal systolic function (EF 65-70%). 2) Severely dilated right ventricle with moderately to severely reduced function. 3) Flattened interventricular septum, suggestive of right ventricular pressure overload. 4) Moderate tricuspid regurgitation present. 5) Severe pulmonary hypertension present, estimated systolic pulmonary pressures of 73mmHG. 6) Small to moderate pericardial effusion present, with no echo evidence of tamponade physiology. 7) Compared to the Echo done 06/27/2016, no significant change. Pericardial effusion in the setting of RV failure carries unfavorable prognosis medium term. Procedure: A two-dimensional transthoracic echocardiogram with color flow and Doppler was performed in limited views only. The study quality was technically good. Comparison is made with the echocardiogram of 06/27/16. The patient was in normal sinus rhythm during the exam. Left Ventricle: The left ventricular cavity is small. The ejection fraction is estimated to be 65-70%. Flattened septum is consistent with RV pressure/volume overload. Right Ventricle: The right ventricle is severely dilated. Right ventricular systolic function is moderately reduced. Tricuspid Valve: There is moderate tricuspid regurgitation. The right ventricular systolic pressure is estimated at 73 mmHg assuming a right atrial pressure of 3 mm Hg. Compared to the prior echo exam, there has been a decrease in the severity of pulmonary hypertension. Great Vessels: The IVC is of normal diameter and collapses greater than 50% with a sniff. This suggests a low right atrial pressure of 3 mm Hg. Pericardium/ Pleura There is a small to moderate pericardial effusion noted. There are no echocardiographic indications of cardiac tamponade. There is a small left-sided pleural effusion. MMode/2D Measurements & Calculations IVC diam: 1.5 cm Doppler Measurements & Calculations TR max rachel: 419.2 cm/sec TR max P.3 mmHg Reading Physician:12:17 PM
[2016-07-02] MEDS ORDERED: TORS20TA3 PO (13:52)
[2016-07-02] MEDS ORDERED: HYDR200T5 PO (13:52)
--- NOTE | 2016-07-02 13:59 | NUR ---
Social Work: Discharge Data: Pt is on day 6 of hospitalization. EMR reviewed. D/C orders are in. states pt will need to follow up with residency clinic, MARAH states she will attempt to make an appointment or leave pt with information to call Residency Clinic on Sunday. No further d/c planning needs at this time. [facility] will continue to follow if needs arise. Assessment: Pt who is independent at baseline. Drug use. Plan: Pt will d/c home via POV today. [facility] to follow up with pt and [facility] to meet with pt on 07/04. No further d/c planning needs at this time. [employer] [facility] will continue to follow if needs arise. TANESHA Devine
--- NOTE | 2016-07-02 14:00 | PCM.DIMED ---
Discharge Instructions Date of Service July 02, 2016 Dates of Hospitalization June 26, 2016 at 23:12 Discharge Diagnosis Discharge Diagnosis Pulmonary Hypertension CHF/Pericardial Effusion Chronic Hypotension Hepatitis C/Elevated LFT Lupus - MCTD/SLE History of Drug Abuse - Heroin/Meth Recent incarceration causing medication noncompliance Medication Instructions Additional med instructions Resume your Ambrisentan as soon as you can get it. Take 3 of the Torsemide tablets a day until you can see your primary doctor or tin can laborer for further direction. Diet Discharge Diet: Low fat, Low Sodium, Heart Healthy Activity Discharge Activity: Limited until seen by PCP Call your provider Call your provider for: Shortness of breath, Chest pain, Weakness (unilateral) Patient Instructions Patient Instructions Keep your appointment with Dr. Ronald Bo at on July 31. Follow-up Provider: [facility] Residency Clinic Follow-up with PCP in: 1 week Zarina Wild MD July 02, 2016 13:59
[2016-07-02 14:10] VITALS: BP 107/68; PULSE 90; PULSE 94; RESP 18; O2SAT 96
--- NOTE | 2016-07-02 14:23 | PCM.DC.MED ---
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 hydroxychloroquine for months before starting it again recently on Dr. Winters's advice. She had a recent ICU admission in October 2015 at the and this was secondary to her pulmonary hypertension and pericardial effusion. Echocardiogram on 11/01/15 showed normal LVEF, moderate RV dilation with mildly reduced function, pulmonary HTN with PA pressures of 47mmHg, flattened interventricular septum, and a small pericardial effusion. Hospital Course Prasanna Espana is a 39 year old female with Core Pulmonale with Right sided heart failure, pulmonary hypertension and a prior history of IV drug abuse [facility] emergency department via EMS with chest pain 1.chest pain with acute on Chronic Right sided Heart Failure with worsened pHTN , Present on admission, presumably in the setting of underlying MCTD and non compliance with medications. repeat TTE 06/29 showed markerd pHTN, [id number], no McConnells sign suggestive of PE, moderate pericardial effusion. no tamponade physiology. -chest pain is now gone, troponins peaked at 0.027 06/27 then normalized -Given additional Lasix IV today. She is breathing better this afternoon than she was before that, this morning. The BNP is down to 519. -appreciate management from cardiology, -spoke to pulmonary, as per , Peter, Ambrisentan and Tadalafil will be refilled and pt will follow up in the clinic with on 08/02. Otherwise, no further recommendation was given. It was suggested that pt may have WHOgr1 PAH, likey due to Methamphatamine or MCTD. As per , also no further recommendation was noted. Goal is to optimize volume status, symptomatic control and d/c with two PAH meds. -resumed Tadalafil and Ambrisentan, which she has now run out of and anticipates a several week delay in ordering it/obtaining it through the specialty pharmacy. - I called pulmonology for advice on that issue and was unable to get anyone to call me back, probably due to the holiday weekend staffing. This is explained to the patient. - The follow up echo showed no worsening of the pericardial effusion. She is again discussed with Dr. Garcia. - She will increase her Torsemide to 60 mg QD - She will need a local PCP soon and will call the residency clinic again for an appointment. - She will see Dr. Bo on July 31 (discrepant with the above 08/02 statement). -O2 supplement as needed, with documented 93% on RA with ambulation today. -appreciate palliative care consult, consulted given severely advanced pHTN, likely irreversible 2 chronic hypotension, tachycardia, POA, likely in the setting of severe pHTN, decreased preload, no s/s of infectin. 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 -She has close friends and relatives who will be helping/guiding her. - Her boyfriend is in [facility] until next year. Disposition: Will go home with her cousin today, appreciate SW/SHANKAR for snf plan, unable to do anything to help her obtain the Ambrisentan. She knows how to do it and will need to start on it after day this week. I called her section repairer and didn't get a call back yet today. Exam Vital Signs (Last) Date Time Temp Pulse Resp B/P Pulse Ox O2 Delivery O2 Flow Rate FiO2 07/02/16 11:42 93 07/02/16 09:45 36.6 18 96/61 94 Room Air 07/02/16 00:33 1.00 Exam Heart; RRR no murmur Lungs: CTAB ext: No ankle edema No anxiety or dyspnea Test 06/26/16 16:50 06/26/16 18:11 06/27/16 07:35 06/27/16 22:30 Erythrocyte Sedimentation Rate 17mm/hr (0-32) Hemoglobin A1c 5.2% (4.8-5.6) C-Reactive Protein 0.1mg/dL (0.0-0.5) Alcohols < 10mg/dL (0-10) Urine Color Straw (YELLOW) Urine Appearance Clear (CLEAR,HAZY) Urine pH 6.0 (5.0-8.0) Urine Specific [place] 1.007 (1.003-1.035) Urine Protein Negativemg/dL (NEG,TRACE) Urine Glucose (UA) Negativemg/dL (NEGATIVE) Urine Ketones Negativemg/dL (NEGATIVE) Urine Occult Blood Negative (NEGATIVE) Urine Nitrite Negative (NEGATIVE) Urine Bilirubin Negative (NEGATIVE) Urine Urobilinogen Normalmg/dL (NORMAL) Urine Leukocyte Esterase Negative (NEGATIVE) Urine RBC 0-2/hpf (0-2) Urine WBC 0-5/hpf (0-5) Urine Epithelial Cells Few/hpf (NONE-MOD) Urine Crystals None seen (NONE SEEN) Urine Bacteria None/hpf (NONE-FEW) Urine Hyaline Casts None/lpf (NONE) Urine Granular Casts None seen (NONE SEEN) Urine Waxy Casts None seen (NONE SEEN) Urine Red Blood Cell Casts None seen (NONE SEEN) Urine White Blood Cell Casts None seen (NONE SEEN) Urine Mucus None seen (None Seen) Urine Trichomonas None seen (NONE SEEN) Urine Yeast None (NONE SEEN) Urine Culture Reflexed Not indicated Hold Urine Received (Received) Urine Opiates Screen Negative Urine Methadone Screen Negative Urine Barbiturates Screen Negative Urine Amphetamines Screen Positive Urine Benzodiazepines Screen Negative Urine Cocaine Metabolite Screen Negative Urine Cannabinoids Screen Negative Triglycerides Level 93mg/dL (0-149) Cholesterol Level 123mg/dL (100-199) LDL Cholesterol, Calculated 68.400mg/dL (0-99) VLDL Cholesterol 18.600mg/dL HDL Cholesterol 36mg/dL (>39) Cholesterol/HDL Ratio 3.42 (0.0-4.4) Procalcitonin 0.08ng/mL (0.00-0.08) Total Creatine Kinase 113U/L (21-215) Creatine Kinase MB 2.7ng/mL (0.0-5.3) Creatine Kinase MB % % (0.0-5.0) Troponin T 0.010ug/L (0.0-0.011) Test 06/30/16 05:10 07/02/16 09:30 White Blood Count 6.7th/mm3 (3.8-10.1) Red Blood Count 4.96mil/mm3 (3.90-5.20) Hemoglobin 14.7g/dL (12.0-15.6) Hematocrit 41.8% (35.0-46.0) Mean Corpuscular Volume 84.3fL (81-100) Mean Corpuscular Hemoglobin 29.6pg (27.0-35.0) Mean Corpuscular Hemoglobin Concent 35.2% (32.0-37.0) Red Cell Distribution Width 14.8% (12.3-15.4) Platelet Count 395bil/L (150-400) Neutrophils (%) (Auto) 54.4% (40-74) Lymphocytes (%) (Auto) 33.2% (14-46) Monocytes (%) (Auto) 10.0% (4-12) Eosinophils (%) (Auto) 1.9% (0-5) Basophils (%) (Auto) 0.4% (0-3) Phosphorus Level 3.8mg/dL (2.5-4.9) Magnesium Level 2.0mg/dL (1.6-2.6) Total Bilirubin 0.2mg/dL (0.0-1.2) Aspartate Amino Transf (AST/SGOT) 96U/L (0-50) Alanine Aminotransferase (ALT/SGPT) 82U/L (0-32) Alkaline Phosphatase 81U/L (25-150) Total Protein 7.3g/dL (6.4-8.4) Albumin 2.9g/dL (3.4-5.0) Sodium Level 136mEq/L (134-144) Potassium Level 4.4mEq/L (3.5-5.2) Chloride Level 101mEq/L (97-108) Carbon Dioxide Level 21mmol/L (18-29) Blood Urea Nitrogen 16mg/dL (6-20) Creatinine 0.66mg/dL (0.57-1.00) Estimat Glomerular Filtration Rate 144mL/min (>59) Glucose Level 123mg/dL (60-99) Calcium Level 8.4mg/dL (8.5-10.1) Pro-B-Type Natriuretic Peptide 519.2pg/mL (0-130) Microbiology Results MRSA nasal screen is negative. Blood cultures are negative to date. Discharge Medications Discharge Medications Ambrisentan (Letairis) 10 Mg Tablet 10 MG PO DAILY (Reported) Hydroxychloroquine Sulfate (Hydroxychloroquine Sulfate) 200 Mg Tablet 200 MG PO DAILY Prescribed by: ZOYA HAYWARD MD Tadalafil (Adcirca) 20 Mg Tablet 20 MG PO DAILY (Reported) Torsemide (Torsemide) 20 Mg Tablet 60 MG PO DAILY Prescribed by: ZOYA HAYWARD MD Additional med instructions Resume your Ambrisentan as soon as you can get it. Take 3 of the Torsemide tablets a day until you can see your primary doctor or section repairer for further direction. Followup Plan Discharge Diet: Low fat, Low Sodium, Heart Healthy Discharge Activity: Limited until seen by PCP Patient Instructions Keep your appointment with Dr. Ronald Bo at on July 31. Follow-up Provider: [facility] Follow-up with PCP in: 1 week Time spent 75 minutes Zarina Hayward MD July 02, 2016 14:04
--- NOTE | 2016-07-02 14:57 | NUR ---
Discharge Pt d/c at 1450, leaving with her aunt Marline. Pt denied pain, VSS. IV & tele d/c. D/c info discussed with pt, pt denied having questions. Education provided re new Rx and importance of keeping 2 f/u appts. All personal belongings left with pt. *pt left off unit with aunt leaving behind the d/c folder. Call made to pts mom, will notify pt.
--- NOTE | 2016-07-03 17:39 | NUR ---
CHF Discharge follow up call attempt: Patient called at home. No cotton picker operator. Received message stating that mailbox was full. Unable to leave message.
--- NOTE | 2016-07-04 17:40 | NUR ---
CHF Discharge follow up phone call: Patient stated that she will follow up with her Heel Seat Fitter in [place] on the 07/12/16. She currently does not have all of her discharge medications, but will pick them up soon. No orders for CHF Clinic follow up. Stated understanding of the CHF teaching she received as an inpatient. No questions at this time.
--- NOTE | 2016-07-13 15:25 | NUR ---
Palliative care note D/A: Phone call today to pt home phone. Note that she just had visit with Dr. Bo, call center representative specialist at , who specializes in pulmonary hypertension. Have left message on pt phone indicating doing follow up call and also to discuss potential OPC appt, as discussed while pt was in acute care. P: Palliative care to follow up with call in a few days. Tamra GLEASON, CCM
--- NOTE | 2016-07-18 14:41 | NUR ---
Palliative care note D/A: Phone call to pt home at [phone] to discuss with her. Attempted to leave message but mailbox was full. P: Palliative care attempting to provide follow up to pt. Tamra GLEASON, CCM
== END 2016-07-02 14:53 | disposition home or self-care (01) | DRG 291 ==
LOC: EDBD 16:40 → SED 16:40 → EDUNIT# 16:40 → SED 19:39 → MPC 23:12
PROVIDERS: ADMIT Hospitalist; ATTEND Hospitalist
DX: I50.33 Acute on chronic diastolic (congestive) heart failure (principal); K72.00 Acute and subacute hepatic failure without coma; I27.2 Other secondary pulmonary hypertension; I31.3 Pericardial effusion (noninflammatory); M32.9 Systemic lupus erythematosus, unspecified; M35.9 Systemic involvement of connective tissue, unspecified; F15.10 Other stimulant abuse, uncomplicated; F11.10 Opioid abuse, uncomplicated; R07.9 Chest pain, unspecified; B18.2 Chronic viral hepatitis C; Z88.0 Allergy status to penicillin; Z91.14 Patient's other noncompliance with medication regimen